=== PATIENT | female | born 1935 | race Asian ===

== ENCOUNTER 2017-07-11 07:12 | Inpatient (IN) | payer MEDICARE, OTHER ==
[~2017-07-11] VITALS: Ht 160 cm; Wt 43.2 kg
[2017-07-11] VITALS (17 sets, daily range): BP systolic 110–145; BP diastolic 50–75
--- NOTE | 2017-07-11 08:00 | Emergency Room Report ---
History of Present Illness General Chief Complaint: Altered Level of Consciousness Source: Medical Record, EMS Present Illness HPI 81-year-old female, coming from [facility], history of breast cancer, congestive heart failure, CVA, respiratory failure, baseline mental status is nonverbal but alert, presenting with altered mental status. EMS stating that nursing staff stated she was unresponsive this morning. Patient was hypoxic on room air, 100% with 3 L nasal cannula. No other history is able to be obtained Allergies: Coded Allergies: No Known Allergies (Unverified , 07/11/17) Patient History Past Medical History: see triage record Past Surgical History: unable to obtain Pertinent Family History: unable to obtain Last Menstrual Period: NA Now: No Reviewed Nursing Documentation: PMH: Agreed, PSxH: Agreed Nursing Documentation-PMH Hx Cardiac Problems: Yes - chronic systolic heart failure Review of Systems All Other Systems: limited - nonverbal Physical Exam Vital Signs Date Time Temp Pulse Resp B/P (MAP) Pulse Ox O2 Delivery O2 Flow Rate FiO2 07/11/17 06:59 90 16 129/73 92 Nasal Cannula 2.0 Sp02 EP Interpretation: abnormal General Appearance: moderate distress, lethargic, thin, other - not responsive , Chronically Ill Head: normocephalic, atraumatic Eyes: bilateral eye normal inspection, bilateral eye PERRL, bilateral eye EOMI ENT: normal ENT inspection, normal pharynx, normal voice, moist mucus membranes Neck: normal inspection, full range of motion, supple Respiratory: other - crackles b/l Cardiovascular #1: normal inspection, regular rate, rhythm, normal capillary refill Cardiovascular #2: 2+ radial (R), 2+ radial (L) Gastrointestinal: normal inspection, non tender, soft, non-distended, no guarding Musculoskeletal: normal inspection, back normal, normal range of motion, non- tender Neurologic: other - moves spont, moans, but not responsive Psychiatric: other - not resp Skin: normal inspection, normal color, no rash, warm/dry, well hydrated, normal turgor Procedures Critical Care Time Critical Care Time 40 minutes of CC time 81-year-old female with altered mental status CHF, pneumonia VS: Hypoxic PLAN: IV access, labs, lactate, troponin, Blood/Urine Cx, Abx, IVF Anticipate admission to Tele vs. CATHERINE CC time also includes review of labs, review of EMR, discussion with family and paperwork from SNF, d/w hospitalist CC could include dosing of pressors, additional Abx CC time does not include procedures Medical Decision Making Diagnostic Impression: Primary Impression: Respiratory failure with hypoxia Additional Impressions: Pneumonia CHF (congestive heart failure) ER Course 81-year-old female, with altered mental status Baseline is nonverbal DDX: Dehydration, hypovolemia, electrolyte disturbance Sepsis 2/2 UTI, PNA, bacteremia, will also consider intra-abdominal pathology such as colitis / diverticulitis / acalculous cholecystitis if no other course found but at this time abdomen soft, NT, ND. CVA/intracranial bleed Plan: O2 via nasal cannula Obtain labs including cbc, bmp, blood culture, blood gas, lactate, ua, ucx CXR EKG ER course: Pt's airway remains patent, supplemental O2 provided by NC 30cc/kg bolus not given to patient as patient with congestive heart failure Patient's BP has remained stable with MAP > 65 Given broad spectrum abx - vancomycin and zosyn for possible HCAP placed on BIPAP - improvement of co2 I spoke to family with kinyarwanda employee operations examiner and informed them of her critical condition Disposition: Patient will admitted to ICU Patient requires close monitoring of respiratory/hemodynamic status and continuation of IV antibiotics. D/W Hospitalist Dr Rose Please note that this Emergency Department Report was dictated using [employer]' registry director technology software, occasionally this can lead to erroneous entry secondary to interpretation by the dictation equipment. EKG Diagnostic Results EP Interpretation: Yes Rate: normal Rhythm: NSR ST Segments: No acute changes ASA given to patient: No Rhythm Strip EP Interpretation: Yes Rate: 88 Rhythm: NSR, no PVCs, no ectopy Chest X-ray CXR: Ordered: Yes 1 view Indication: Altered mental status EP interpretation: Yes Interpretation: Cardiomegaly with bilateral pulmonary vascular congestion, likely with right-sided lower lobe pneumonia Impression: chf with L PNA Electronically signed by Anu Subramanian MD Laboratory Tests Test 07/11/17 08:00 07/11/17 08:04 07/11/17 09:10 07/11/17 09:26 Urine Color Pale yellow Urine Appearance Clear Urine pH 7 (4.5-8.0) Urine Specific [place] 1.010 (1.005-1.035) Urine Protein 1+ (NEGATIVE) H Urine Glucose (UA) Negative (NEGATIVE) Urine Ketones Negative (NEGATIVE) Urine Occult Blood Negative (NEGATIVE) Urine Nitrite Negative (NEGATIVE) Urine Bilirubin Negative (NEGATIVE) Urine Urobilinogen Normal MG/DL (0.0-1.0) Urine Leukocyte Esterase 1+ (NEGATIVE) H Urine RBC 2-4 /HPF (0 - 2) H Urine WBC 5-10 /HPF (0 - 2) H Urine Squamous Epithelial Cells Occasional /LPF Urine Bacteria Few /HPF (NONE) Sodium Level 142 MMOL/L (136-145) Potassium Level 4.6 MMOL/L (3.5-5.1) Chloride Level 103 MMOL/L (98-107) Carbon Dioxide Level 36 MMOL/L (21-32) H Anion Gap 4 mmol/L (5-15) L Blood Urea Nitrogen 18 mg/dL (7-18) Creatinine 1.0 MG/DL (0.55-1.30) Estimate Glomerular Filtration Rate mL/min (>60) Glucose Level 85 MG/DL (74-106) Lactic Acid Level 0.50 mmol/L (0.66-2.22) L Calcium Level 8.7 MG/DL (8.5-10.1) Total Bilirubin 0.3 MG/DL (0.2-1.0) Aspartate Amino Transferase (AST) 28 U/L (15-37) Alanine Aminotransferase (ALT) 13 U/L (12-78) Alkaline Phosphatase 66 U/L (46-116) Troponin I 0.026 ng/mL (0.000-0.056) Pro-B-Type Natriuretic Peptide 4801 pg/mL (0-125) H Total Protein 7.5 G/DL (6.4-8.2) Albumin 3.0 G/DL (3.4-5.0) L Globulin 4.5 g/dL Albumin/Globulin Ratio 0.7 (1.0-2.7) L Arterial Blood pH 7.291 (7.350-7.450) 7.324 (7.350-7.450) Arterial Blood Partial Pressure CO2 78.0 mmHg (35.0-45.0) *H 65.4 mmHg (35.0-45.0) *H Arterial Blood Partial Pressure O2 63.4 mmHg (75.0-100.0) L 74.9 mmHg (75.0-100.0) L Arterial Blood HCO3 36.7 mmol/L (22.0-26.0) H 33.2 mmol/L (22.0-26.0) H Arterial Blood Oxygen Saturation 88.1 % (92.0-98.0) L 93.0 % (92.0-98.0) Arterial Blood Base Excess 8.1 5.8 Arun Test Positive Positive White Blood Count 11.3 K/UL (4.8-10.8) H Red Blood Count 3.40 M/UL (4.20-5.40) L Hemoglobin 10.2 G/DL (12.0-16.0) L Hematocrit 33.1 % (37.0-47.0) L Mean Corpuscular Volume 97 FL (80-99) Mean Corpuscular Hemoglobin 29.9 PG (27.0-31.0) Mean Corpuscular Hemoglobin Concent 30.7 G/DL (32.0-36.0) L Red Cell Distribution Width 15.4 % (11.6-14.8) H Platelet Count 201 K/UL (150-450) Mean Platelet Volume 5.1 FL (6.5-10.1) L Neutrophils (%) (Auto) % (45.0-75.0) Lymphocytes (%) (Auto) % (20.0-45.0) Monocytes (%) (Auto) % (1.0-10.0) Eosinophils (%) (Auto) % (0.0-3.0) Basophils (%) (Auto) % (0.0-2.0) Neutrophils % (Manual) Pending Lymphocytes % (Manual) Pending Platelet Estimate Pending Platelet Morphology Pending Microbiology Date/Time Source Procedure Growth Status 07/11/17 08:00 Nasal Nares Influenza Types A,B Antigen (ERIBERTO) - Final Complete Last Vital Signs Date Time Temp Pulse Resp B/P (MAP) Pulse Ox O2 Delivery O2 Flow Rate FiO2 07/11/17 06:59 90 16 129/73 92 Nasal Cannula 2.0 Disposition: ADMITTED INPATIENT Condition: Anu Mims M.D. Jul 11, 2017 08:00
[2017-07-11 08:17] LABS: APPEARANCE,URINE CLEAR; BILIRUBIN, URINE NEGATIVE (NEGATIVE); COLOR,URINE PALE YELLOW; GLUCOSE, URINE (UA) NEGATIVE (NEGATIVE); KETONES,URINE NEGATIVE (NEGATIVE); LEUKOCYTE ESTERASE ,URINE 1+ (NEGATIVE); NITRITE,URINE NEGATIVE (NEGATIVE); PH,URINE 7 (4.5-8.0); PROTEIN,URINE 1+ (NEGATIVE); UROBILINOGEN,URINE NORMAL MG/DL (0.0-1.0)
[2017-07-11 08:30] LABS: ANION GAP 4 mmol/L (5-15); BLOOD UREA NITROGEN 18 mg/dL (7-18); CALCIUM 8.7 MG/DL (8.5-10.1); CARBON DIOXIDE 36 MMOL/L (21-32); CHLORIDE 103 MMOL/L (98-107); POTASSIUM 4.6 MMOL/L (3.5-5.1); SODIUM 142 MMOL/L (136-145)
[2017-07-11] MEDS ORDERED: Piperacillin/Tazobactam 3.375 GM in NS 55 ML IV ONE (08:45)
[2017-07-11] MEDS ORDERED: Vancomycin 1 GM in NS 275 ML IVPB ONE (08:45)
[2017-07-11 08:47] LABS: ALANINE AMINOTRANSFERASE 13 U/L (12-78); ALBUMIN/GLOBULIN RATIO 0.7 (1.0-2.7); ALKALINE PHOSPHATASE 66 U/L (46-116); ASPARTATE AMINO TRANSFERASE 28 U/L (15-37); BILIRUBIN,TOTAL 0.3 MG/DL (0.2-1.0)
[2017-07-11] MEDS ORDERED: Zosyn 3.375gm inj ONE (08:50)
[2017-07-11 09:27] LABS: HEMATOCRIT 33.1 % (37.0-47.0); HEMOGLOBIN 10.2 G/DL (12.0-16.0); MEAN CORPUSCULAR VOLUME 97 FL (80-99); PLATELET COUNT 201 K/UL (150-450); RED CELL DISTRIBUTION WIDTH 15.4 % (11.6-14.8); WHITE BLOOD COUNT 11.3 K/UL (4.8-10.8)
[2017-07-11] MEDS ORDERED: Vancomycin 1gm inj IVPB ONE (09:35)
[2017-07-11] MEDS ORDERED: ATORVASTATIN CA40 MG ORAL (10:35)
[2017-07-11] MEDS ORDERED: DULCOLAX10 MG RC (10:35)
[2017-07-11] MEDS ORDERED: MULTIVITAMINS1 EAC8 ORAL (10:35)
[2017-07-11] MEDS ORDERED: ACETAMINOPHEN325 M1 ORAL (10:35)
[2017-07-11] MEDS ORDERED: PROAIR HFA8.5 GM INH (10:35)
[2017-07-11] MEDS ORDERED: COREG3.125 MG ORAL (10:35)
[2017-07-11] MEDS ORDERED: MILK OF MA400 MG/51 ORAL (10:35)
[2017-07-11] MEDS ORDERED: COLACE100 MG ORAL (10:35)
[2017-07-11] MEDS ORDERED: ASPIR 8181 MG ORAL (10:35)
[2017-07-11] MEDS ORDERED: VITAMIN C500 M1 ORAL (10:35)
[2017-07-11] MEDS ORDERED: LORazepam Inj 2mg/ml 1ml IV PRN (11:00)
[2017-07-11] MEDS ORDERED: Morphine Sulfate 4mg/ml Inj IVP PRN (11:00)
[2017-07-11] MEDS ORDERED: Miralax 17gm pkt ORAL PRN (11:00)
[2017-07-11] MEDS ORDERED: Albuterol/Ipratropium 3ml neb HHN PRN (11:00)
--- NOTE | 2017-07-11 12:24 | Diagnostic Imaging Report ---
Indication: Dyspnea Comparison: None A single view chest radiograph was obtained. Findings: Interstitial edema and prominent pulmonary vascularity and heart size are demonstrated. Basilar densities likely atelectasis noted. Bones are moderately osteopenic. IMPRESSION: CHF/interstitial edema suspected
[2017-07-11] MEDS ORDERED: AMIKACIN IV SCH (16:30)
[2017-07-11] MEDS ORDERED: D5W IV SCH (16:30)
--- NOTE | 2017-07-11 17:26 | Cardiology Report ---
APPROVED REPORT EXAM: Two-dimensional and M-mode echocardiogram with Doppler and color Doppler. INDICATION Left ventricular function M-Mode DIMENSIONS IVSd1.5 (0.7-1.1cm)Left Atrium (MM)1.9 (1.6-4.0cm) LVDd4.6 (3.5-5.6cm)Aortic Root3.4 (2.0-3.7cm) PWd1.5 (0.7-1.1cm)Aortic Cusp Exc.1.5 (1.5-2.0cm) LVDs2.8 (2.5-4.0cm) PWs1.9 cm Normal left ventricular chamber size, systolic function and wall motion.however chirag distal posteriro wall is not adequately visualized Left ventricular ejection fraction estimated to be 55-60%. Moderate left ventricular hypertrophy. Small posterior pericardial effusion. Right cardiac chamber sizes are within normal limits. Mild left atrial enlargement by 2D. Focal aortic valve sclerosis with adequate cusp excursion. Normal mitral valve leaflets with normal excursion. Normal mitral annulus and aortic root. Pulmonic valve is well visualized. Normal tricuspid valve structure. IVC dilated at 2.4 cm non-collapsible with respiration indicate increased RA pressure. A color flow and spectral Doppler study was performed and revealed: Moderate aortic regurgitation. Trace mitral regurgitation. Mitral diastolic velocities suggest reduced left ventricular relaxation c/w diastolic dysfunction grade 1. Mild tricuspid regurgitation. Tricuspid systolic velocities suggests peak right ventricular systolic pressure of 50mmHg Consistent with moderate pulmonary hypertension. Pulmonic regurgitation present.
--- NOTE | 2017-07-11 17:29 | History and Physical ---
History of Present Illness General Date patient seen: Jul 11, 2017 Reason for Hospitalization: Altered Level of Consciousness Present Illness HPI 81[facility], history of breast cancer, congestive heart failure, CVA, respiratory failure, baseline mental status is nonverbal but alert, presenting with altered mental status. Apparently, she was unresponsive. Patient was hypoxic on room air, 100% with 3 L nasal cannula. Her CXr showed RLL infiltrate. Allergies: Coded Allergies: No Known Allergies (Unverified , 07/11/17) Medication History Scheduled Albuterol Sulfate* (Proair Hfa*), 1 PUFF INH Q4HR, (Reported) Ascorbic Acid* (Vitamin C*), 500 MG ORAL TWICE A DAY, (Reported) Aspirin* (Aspir 81*), 81 MG ORAL DAILY, (Reported) Atorvastatin Calcium* (Atorvastatin Calcium*), 40 MG ORAL BEDTIME, (Reported) Carvedilol (Coreg), 3.125 MG ORAL EVERY 12 HOURS, (Reported) Docusate Sodium* (Colace*), 100 MG ORAL TWICE A DAY, (Reported) Multivitamin With Minerals (Multivitamins With Minerals*), 1 TAB ORAL DAILY, ( Reported) Scheduled PRN Acetaminophen* (Acetaminophen 325MG Tablet*), 650 MG ORAL Q8HR PRN for For Pain Level <=5, (Reported) Acetaminophen* (Acetaminophen 325MG Tablet*), 650 MG ORAL Q8HR PRN for Fever/ Headache/Mild Pain, (Reported) Bisacodyl (Dulcolax), 10 MG RC for Constipation, (Reported) Magnesium Hydroxide* (Milk Of Magnesia*), 30 ML ORAL NEEDED PRN for Constipation, (Reported) Patient History Healthcare decision maker Zayda Doherty/daughter Resuscitation status Full Code Advanced Directive on File No Past Medical/Surgical History Past Medical/Surgical History: (1) CHF (congestive heart failure) Social History Social History: (1) Dementia (2) History of CVA (cerebrovascular accident) (3) CAD (coronary artery disease) Review of Systems Constitutional: Reports: malaise, weakness ENT: Reports: no symptoms Cardiovascular: Reports: no symptoms Gastrointestinal: Reports: no symptoms Genitourinary: Reports: no symptoms Physical Exam General Appearance: WD/WN, no apparent distress Lines, tubes and drains: peripheral HEENT: normocephalic, atraumatic Neck: non-tender, normal alignment Respiratory/Chest: chest wall non-tender, lungs clear Breasts: no masses Cardiovascular/Chest: normal peripheral pulses, normal rate Abdomen: normal bowel sounds Genitourinary/Rectal: normal genital exam Extremities: normal range of motion Last 24 Hour Vital Signs Date Time Temp Pulse Resp B/P (MAP) Pulse Ox O2 Delivery O2 Flow Rate FiO2 07/11/17 17:00 83 19 132/64 98 Nasal Cannula 2.0 07/11/17 16:00 98.0 80 20 138/73 100 Nasal Cannula 2.0 07/11/17 16:00 80 07/11/17 15:00 81 21 134/61 98 Nasal Cannula 2.0 07/11/17 14:00 97.8 80 21 135/59 100 Nasal Cannula 2.0 07/11/17 13:07 97 Nasal Cannula 4.0 36 07/11/17 13:07 Nasal Cannula 4.0 36 07/11/17 12:39 94 17 155/66 100 Nasal Cannula 4.0 07/11/17 11:49 81 20 145/72 98 Bi-pap 30 07/11/17 10:40 79 17 130/61 97 Bi-pap 30 07/11/17 10:00 100.3 86 17 135/61 97 Bi-pap 30 07/11/17 09:52 82 17 98 Facial 30 07/11/17 09:30 81 16 118/57 97 Bi-pap 30 07/11/17 09:00 87 18 136/50 97 Bi-pap 30 07/11/17 08:51 91 20 Bi-pap 30 07/11/17 08:48 91 19 99 Facial 30 07/11/17 08:37 30 07/11/17 08:30 90 15 144/70 97 Nasal Cannula 2.0 07/11/17 08:00 91 24 139/68 100 Nasal Cannula 2.0 07/11/17 07:15 100.1 87 16 138/66 100 Nasal Cannula 4.0 07/11/17 06:59 90 16 129/73 92 Nasal Cannula 2.0 Laboratory Tests Test 07/11/17 08:00 07/11/17 08:04 07/11/17 09:10 07/11/17 09:26 Urine Color Pale yellow Urine Appearance Clear Urine pH 7 (4.5-8.0) Urine Specific [place] 1.010 (1.005-1.035) Urine Protein 1+ (NEGATIVE) H Urine Glucose (UA) Negative (NEGATIVE) Urine Ketones Negative (NEGATIVE) Urine Occult Blood Negative (NEGATIVE) Urine Nitrite Negative (NEGATIVE) Urine Bilirubin Negative (NEGATIVE) Urine Urobilinogen Normal MG/DL (0.0-1.0) Urine Leukocyte Esterase 1+ (NEGATIVE) H Urine RBC 2-4 /HPF (0 - 2) H Urine WBC 5-10 /HPF (0 - 2) H Urine Squamous Epithelial Cells Occasional /LPF Urine Bacteria Few /HPF (NONE) Sodium Level 142 MMOL/L (136-145) Potassium Level 4.6 MMOL/L (3.5-5.1) Chloride Level 103 MMOL/L (98-107) Carbon Dioxide Level 36 MMOL/L (21-32) H Anion Gap 4 mmol/L (5-15) L Blood Urea Nitrogen 18 mg/dL (7-18) Creatinine 1.0 MG/DL (0.55-1.30) Estimat Glomerular Filtration Rate mL/min (>60) Glucose Level 85 MG/DL (74-106) Lactic Acid Level 0.50 mmol/L (0.66-2.22) L Calcium Level 8.7 MG/DL (8.5-10.1) Total Bilirubin 0.3 MG/DL (0.2-1.0) Aspartate Amino Transf (AST/SGOT) 28 U/L (15-37) Alanine Aminotransferase (ALT/SGPT) 13 U/L (12-78) Alkaline Phosphatase 66 U/L (46-116) Troponin I 0.026 ng/mL (0.000-0.056) Pro-B-Type Natriuretic Peptide 4801 pg/mL (0-125) H Total Protein 7.5 G/DL (6.4-8.2) Albumin 3.0 G/DL (3.4-5.0) L Globulin 4.5 g/dL Albumin/Globulin Ratio 0.7 (1.0-2.7) L Arterial Blood pH 7.291 (7.350-7.450) 7.324 (7.350-7.450) Arterial Blood Partial Pressure CO2 78.0 mmHg (35.0-45.0) *H 65.4 mmHg (35.0-45.0) *H Arterial Blood Partial Pressure O2 63.4 mmHg (75.0-100.0) L 74.9 mmHg (75.0-100.0) L Arterial Blood HCO3 36.7 mmol/L (22.0-26.0) H 33.2 mmol/L (22.0-26.0) H Arterial Blood Oxygen Saturation 88.1 % (92.0-98.0) L 93.0 % (92.0-98.0) Arterial Blood Base Excess 8.1 5.8 Arun Test Positive Positive White Blood Count 11.3 K/UL (4.8-10.8) H Red Blood Count 3.40 M/UL (4.20-5.40) L Hemoglobin 10.2 G/DL (12.0-16.0) L Hematocrit 33.1 % (37.0-47.0) L Mean Corpuscular Volume 97 FL (80-99) Mean Corpuscular Hemoglobin 29.9 PG (27.0-31.0) Mean Corpuscular Hemoglobin Concent 30.7 G/DL (32.0-36.0) L Red Cell Distribution Width 15.4 % (11.6-14.8) H Platelet Count 201 K/UL (150-450) Mean Platelet Volume 5.1 FL (6.5-10.1) L Neutrophils (%) (Auto) % (45.0-75.0) Lymphocytes (%) (Auto) % (20.0-45.0) Monocytes (%) (Auto) % (1.0-10.0) Eosinophils (%) (Auto) % (0.0-3.0) Basophils (%) (Auto) % (0.0-2.0) Differential Total Cells Counted 100 Neutrophils % (Manual) 37 % (45-75) L Lymphocytes % (Manual) 56 % (20-45) H Monocytes % (Manual) 6 % (1-10) Eosinophils % (Manual) 1 % (0-3) Basophils % (Manual) 0 % (0-2) Band Neutrophils 0 % (0-8) Platelet Estimate Adequate Platelet Morphology Normal Hypochromasia 2+ Anisocytosis 1+ Microbiology Date/Time Source Procedure Growth Status 07/11/17 08:00 Nasal Nares Influenza Types A,B Antigen (ERIBERTO) - Final Complete Height (Feet): 5 Height (Inches): 3.00 Weight (Pounds): 95 Medications Current Medications Medications (Trade) Dose Ordered Sig/Sam Route PRN Reason Start Time Stop Time Status Last Admin Dose Admin Acetaminophen (Tylenol) 650 mg Q4H PRN ORAL fever 07/11/17 11:00 08/10/17 10:59 Albuterol/ Ipratropium (Albuterol/ Ipratropium) 3 ml EVERY 4 HOURS PRN HHN Shortness of Breath 07/11/17 11:00 07/16/17 10:59 Amikacin Sulfate 250 mg/Dextrose 56 ml @ 110 mls/hr Q12H IV 07/12/17 04:00 07/19/17 03:59 Amikacin Sulfate 350 mg/Dextrose 56.4 ml @ 110 mls/hr ONCE IV 07/11/17 16:30 07/18/17 16:29 07/11/17 16:24 Ertapenem 1 gm/ Sodium Chloride 55 ml @ 110 mls/hr Q24H IV 07/11/17 18:00 07/11/17 18:29 Heparin Sodium (Porcine) (Heparin 5000 units/ml) 5,000 units EVERY 12 HOURS SUBQ 07/11/17 21:00 08/10/17 20:59 Lorazepam (Ativan 2mg/ml 1ml) 2 mg EVERY 2 HOURS PRN IV For Anxiety 07/11/17 11:00 07/18/17 10:59 Morphine Sulfate (Morphine Sulfate) 4 mg EVERY 4 HOURS PRN IVP Severe Pain (Pain Scale 7-10) 07/11/17 11:00 07/18/17 10:59 Norepinephrine Bitartrate 4 mg/ Dextrose 254 ml @ 0 mls/hr Q24H IV 07/11/17 14:45 08/10/17 14:44 Ondansetron HCl (Zofran) 4 mg Q6H PRN IVP Nausea & Vomiting 07/11/17 11:00 08/10/17 10:59 Pantoprazole (Protonix) 40 mg DAILY IV 07/12/17 09:00 08/11/17 08:59 Polyethylene Glycol (Miralax) 17 gm DAILYPRN PRN ORAL Constipation 07/11/17 11:00 08/10/17 10:59 Sodium Chloride 1,000 ml @ 100 mls/hr Q10H IVLG 07/11/17 15:30 08/10/17 15:29 07/11/17 15:38 Vancomycin/Sodium Chloride 250 ml @ 166.667 mls/hr Q24H IVPB 07/12/17 08:00 07/17/17 07:59 Assessment/Plan Problem List: (1) Respiratory failure with hypoxia ICD Codes: J96.91 - Respiratory failure, unspecified with hypoxia SNOMED: 68461850473248255 (2) Altered level of consciousness ICD Codes: R40.4 - Transient alteration of awareness SNOMED: 0043213 (3) Dementia ICD Codes: F03.90 - Unspecified dementia without behavioral disturbance SNOMED: 86926754 (4) History of CVA (cerebrovascular accident) ICD Codes: Z86.73 - Personal history of transient ischemic attack (TIA), and cerebral infarction without residual deficits SNOMED: 592916131 (5) CAD (coronary artery disease) ICD Codes: I25.10 - Atherosclerotic heart disease of [place] coronary artery without angina pectoris SNOMED: 43532709 (6) Pneumonia ICD Codes: J18.9 - Pneumonia, unspecified organism SNOMED: 025061804 Assessment/Plan respiratory treatment IV abx chest pt Neuro evaluation pt/tp titrate fio2 to sat of 92% JADE CHÁVEZ Jul 11, 2017 17:29
[2017-07-11] MEDS ORDERED: Ertapenem 1 GM in NS 55 ML IV SCH (18:00)
[2017-07-11] MEDS ORDERED: Heparin 5000 units/ml inj SUBQ SCH (21:00)
[2017-07-11] MEDS ORDERED: Amikacin 0 MG in NS 110 ML IV SCH (23:45)
[2017-07-11] MEDS ORDERED: Vancomycin 1 GM in D5W 275 ML IV SCH (23:45)
[2017-07-12] VITALS: BP 149/71
[2017-07-12] MEDS ORDERED: Albuterol/Ipratropium 3ml neb HHN PRN (01:00)
[2017-07-12] MEDS ORDERED: Morphine Sulfate 4mg/ml Inj IVP PRN (01:00)
[2017-07-12 04:00] VITALS: BP 153/80
[2017-07-12] MEDS ORDERED: D5W IV SCH ×4 (04:00)
[2017-07-12] MEDS ORDERED: AMIKACIN IV SCH ×4 (04:00)
[2017-07-12 05:39] LABS: BASOPHILS % (AUTO) 0.6 % (0.0-2.0); EOSINOPHILS % (AUTO) 0.8 % (0.0-3.0); HEMATOCRIT 32.3 % (37.0-47.0); HEMOGLOBIN 9.9 G/DL (12.0-16.0); LYMPHOCYTES % (AUTO) 45.2 % (20.0-45.0); MEAN CORPUSCULAR VOLUME 100 FL (80-99); MONOCYTES % (AUTO) 13.3 % (1.0-10.0); NEUTROPHILS % (AUTO) 40.1 % (45.0-75.0); PLATELET COUNT 263 K/UL (150-450); RED BLOOD COUNT 3.25 M/UL (4.20-5.40); RED CELL DISTRIBUTION WIDTH 15.6 % (11.6-14.8); WHITE BLOOD COUNT 11.1 K/UL (4.8-10.8)
[2017-07-12 06:13] LABS: ALANINE AMINOTRANSFERASE 10 U/L (12-78); BILIRUBIN,DIRECT 0.1 MG/DL (0.0-0.3); BLOOD UREA NITROGEN 19 mg/dL (7-18)
[2017-07-12 07:24] LABS: ALBUMIN 2.8 G/DL (3.4-5.0); ALBUMIN/GLOBULIN RATIO 0.7 (1.0-2.7); ALKALINE PHOSPHATASE 66 U/L (46-116); ANION GAP 7 mmol/L (5-15); ASPARTATE AMINO TRANSFERASE 25 U/L (15-37); BILIRUBIN,TOTAL 0.3 MG/DL (0.2-1.0); CALCIUM 8.2 MG/DL (8.5-10.1); CARBON DIOXIDE 32 MMOL/L (21-32); CHLORIDE 103 MMOL/L (98-107); CREATININE 0.8 MG/DL (0.55-1.30); POTASSIUM 4.5 MMOL/L (3.5-5.1); SODIUM 142 MMOL/L (136-145)
[2017-07-12 08:00] VITALS: BP 160/80
[2017-07-12] MEDS ORDERED: Vancomycin 750mg/NS 250ml IVPB SCH (08:00)
[2017-07-12] MEDS: Vancomycin 750mg/NS 250ml 250 ML IVPB SCH (08:19)
[2017-07-12] MEDS: Pantoprazole Inj IV SCH (08:24)
[2017-07-12] MEDS: Heparin 5000 units/ml inj SUBQ SCH ×2 (08:27→20:22)
[2017-07-12] MEDS ORDERED: Pantoprazole Inj IV SCH (09:00)
--- NOTE | 2017-07-12 11:29 | Diagnostic Imaging Report ---
Indication: Dyspnea Comparison: 07/11/2017 A single view chest radiograph was obtained. Findings: There is no radiographic change. The heart is enlarged moderately. There is evidence of interstitial edema. There are probable small bilateral pleural effusions. 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
[2017-07-12 12:00] VITALS: BP 159/87
--- NOTE | 2017-07-12 13:06 | Pulmonology Progress Note ---
Assessment/Plan Problems: (1) Pneumonia (2) Respiratory failure with hypoxia (3) Altered level of consciousness (4) Dementia (5) History of CVA (cerebrovascular accident) (6) CAD (coronary artery disease) Respiratory: monitor respiratory rate, adjust FIO2, CXR Cardiac: continue to monitor HR/BP Renal: F/U I&O, keep IV fluid Infectious Disease: check cultures Gastrointestinal: continue feedings/current rate, other - swallow study Endocrine: monitor blood sugar, check TSH, continue sliding scale insulin Hematologic: monitor H/H, transfuse if hgb<8.5 Neurologic: PRN Ativan, keep patient comfortable Prophylaxis: Protonix, Heparin Time Spent (Minutes): 40 Notes Reviewed: plugging machine operator, cardio, renal Discussed with: nurses, consultants, field nurse case manager Subjective Interval Events: awake,confused Allergies: Coded Allergies: No Known Allergies (Unverified , 07/11/17) Objective Last 24 Hour Vital Signs Date Time Temp Pulse Resp B/P (MAP) Pulse Ox O2 Delivery O2 Flow Rate FiO2 07/12/17 08:00 105 07/12/17 08:00 97.0 103 18 160/80 97 Nasal Cannula 2.0 07/12/17 07:26 Nasal Cannula 2.0 28 07/12/17 07:25 100 Nasal Cannula 2.0 28 07/12/17 07:25 99 20 Nasal Cannula 2.0 07/12/17 04:00 97.7 98 20 153/80 100 Nasal Cannula 2.0 07/12/17 04:00 89 07/12/17 00:00 98.0 92 20 149/71 99 Nasal Cannula 2.0 07/11/17 23:09 87 07/11/17 22:00 85 20 116/60 97 Nasal Cannula 2.0 07/11/17 21:56 87 20 Nasal Cannula 2.0 07/11/17 21:55 Nasal Cannula 2.0 28 07/11/17 21:55 94 Nasal Cannula 2.0 28 07/11/17 21:00 98.3 84 20 110/52 97 Nasal Cannula 2.0 07/11/17 20:00 98.3 84 23 115/55 97 Nasal Cannula 2.0 07/11/17 20:00 84 07/11/17 19:00 81 24 135/75 98 Nasal Cannula 2.0 07/11/17 18:00 91 25 140/62 98 Nasal Cannula 2.0 07/11/17 17:00 83 19 132/64 98 Nasal Cannula 2.0 07/11/17 16:00 98.0 80 20 138/73 100 Nasal Cannula 2.0 07/11/17 16:00 80 07/11/17 15:00 81 21 134/61 98 Nasal Cannula 2.0 07/11/17 14:00 97.8 80 21 135/59 100 Nasal Cannula 2.0 07/11/17 13:07 97 Nasal Cannula 4.0 36 07/11/17 13:07 Nasal Cannula 4.0 36 Intake and Output 07/11/17 07/12/17 19:00 07:00 Intake Total 686.4 ml 555 ml Output Total 120 ml 2 ml Balance 566.4 ml 553 ml Intake IV Total 686.4 ml 555 ml Output Urine Total 120 ml 2 ml General Appearance: cachetic HEENT: normocephalic, atraumatic Respiratory/Chest: chest wall non-tender, lungs clear Cardiovascular: normal peripheral pulses, normal rate, regular rhythm Abdomen: normal bowel sounds, soft, non tender Genitourinary: normal external genitalia Extremities: no clubbing Skin: no rash Neurologic/Psychiatric: integration director II-XII grossly normal Lymphatic: no neck adenopathy Microbiology Date/Time Source Procedure Growth Status 07/11/17 08:00 Nasal Nares Influenza Types A,B Antigen (ERIBERTO) - Final Complete Laboratory Tests 07/12/17 03:20: White Blood Count 11.1H, Red Blood Count 3.25L, Hemoglobin 9.9L, Hematocrit 32.3L, Mean Corpuscular Volume 100H, Mean Corpuscular Hemoglobin 30.5, Mean Corpuscular Hemoglobin Concent 30.6L, Red Cell Distribution Width 15.6H, Platelet Count 263, Mean Platelet Volume 5.5L, Neutrophils (%) (Auto) 40.1L, Lymphocytes (%) (Auto) 45.2H, Monocytes (%) (Auto) 13.3H, Eosinophils (%) (Auto ) 0.8, Basophils (%) (Auto) 0.6, Sodium Level 142, Potassium Level 4.5, Chloride Level 103, Carbon Dioxide Level 32, Anion Gap 7, Blood Urea Nitrogen 19H, Creatinine 0.8, Estimat Glomerular Filtration Rate , Glucose Level 87, Calcium Level 8.2L, Total Bilirubin 0.3, Direct Bilirubin 0.1, Aspartate Amino Transf (AST/SGOT) 25, Alanine Aminotransferase (ALT/SGPT) 10L, Alkaline Phosphatase 66, Total Protein 7.1, Albumin 2.8L, Globulin 4.3, Albumin/Globulin Ratio 0.7L 07/12/17 10:45: Arterial Blood pH 7.219*L, Arterial Blood Partial Pressure CO2 83.3*H, Arterial Blood Partial Pressure O2 131.2H, Arterial Blood HCO3 33.2H, Arterial Blood Oxygen Saturation 97.9, Arterial Blood Base Excess 3.5, Arun Test Positive Current Medications Medications (Trade) Dose Ordered Sig/Sam Route PRN Reason Start Time Stop Time Status Last Admin Dose Admin Acetaminophen (Tylenol) 650 mg Q4H PRN ORAL fever 07/12/17 00:46 08/10/17 00:45 Albuterol/ Ipratropium (Albuterol/ Ipratropium) 3 ml Q4H PRN HHN Shortness of Breath 07/12/17 01:00 07/17/17 00:59 Amikacin Sulfate 250 mg/Dextrose 56 ml @ 110 mls/hr Q12H IV 07/12/17 04:00 07/19/17 03:59 07/12/17 04:20 Heparin Sodium (Porcine) (Heparin 5000 units/ml) 5,000 units EVERY 12 HOURS SUBQ 07/12/17 09:00 08/10/17 20:59 07/12/17 08:27 Lorazepam (Ativan 2mg/ml 1ml) 2 mg Q2H PRN IV For Anxiety 07/12/17 00:00 07/19/17 00:00 07/12/17 11:26 Morphine Sulfate (Morphine Sulfate) 4 mg Q4H PRN IVP Severe Pain (Pain Scale 7-10) 07/12/17 01:00 07/19/17 00:59 Ondansetron HCl (Zofran) 4 mg Q6H PRN IVP Nausea & Vomiting 07/12/17 00:49 08/10/17 00:48 Pantoprazole (Protonix) 40 mg DAILY IV 07/12/17 09:00 08/11/17 08:59 07/12/17 08:24 Polyethylene Glycol (Miralax) 17 gm DAILYPRN PRN ORAL Constipation 07/12/17 00:49 08/10/17 00:48 Sodium Chloride 1,000 ml @ 100 mls/hr Q10H IVLG 07/12/17 01:00 08/11/17 00:59 07/12/17 11:26 Vancomycin/Sodium Chloride 250 ml @ 166.667 mls/hr Q24H IVPB 07/12/17 08:00 07/17/17 07:59 07/12/17 08:19 JADE CHÁVEZ Jul 12, 2017 13:06
--- NOTE | 2017-07-12 13:24 | Consultation ---
Consult Note Consult Note ID DIC # [id number] LILIANA SMITH M.D. Jul 12, 2017 13:24
[2017-07-12] MEDS: Cefepime HCl 2 GM in D5W 55 ML IVPB SCH (15:26)
--- NOTE | 2017-07-12 15:55 | Cardiology Report ---
APPROVED REPORT EKG Measurement Heart [id number] Normal sinus rhythm Possible Left atrial enlargement Left axis deviation Abnormal ECG
[2017-07-12 16:00] VITALS: BP 155/77
[2017-07-12] MEDS ORDERED: LORazepam Inj 2mg/ml 1ml IV PRN ×2 (16:00)
--- NOTE | 2017-07-12 16:58 | Wound Care Consultation ---
Wound Assessment Wound Assessment #1: Wound Number: 1 Wound Present on Admission: Yes New Wound: No Status Change of Wound: No Wound Location Body Site Modif: mid Wound Location Body Site: sacral - extending to left buttock Wound Type: pressure ulcer Janet Test: Does not Janet Pressure Ulcer Stage: Unstageable Wound Thickness: Full Thickness Wound Length: 8.0 Wound Width: 4.5 Wound Depth: utd Percent of Wound Naselle/Red: 40 Percent of Wound Bed Yellow/Wh: 60 Wound Drainage Description: Serosanguineous Wound Drainage Amount: Moderate Wound Drainage Odor: None/Absent Tissue Surrounding Wound: Erythemic Wound General Appearance: Reddened - yellow, Draining Wound Assessment #2: Wound Number: 2 Wound Present on Admission: Yes New Wound: No Status Change of Wound: No Wound Location Body Site Modif: left Wound Location Body Site: ischial tuberosity Wound Type: pressure ulcer Janet Test: Does not Janet Pressure Ulcer Stage: Unstageable Wound Thickness: Full Thickness Wound Length: 4.5 Wound Width: 7.5 Wound Depth: utd Percent of Wound Naselle/Red: 20 Percent of Wound Bed Yellow/Wh: 80 Wound Drainage Description: Serosanguineous Wound Drainage Amount: Moderate Wound Drainage Odor: None/Absent Tissue Surrounding Wound: Macerated Wound General Appearance: Reddened - yellow, Draining Wound Assessment #3: Wound Number: 3 Wound Present on Admission: Yes New Wound: No Status Change of Wound: No Wound Location Body Site: perineal area Wound Type: erosion Janet Test: Does not Janet Wound Thickness: Full Thickness Percent of Wound Naselle/Red: 80 Percent of Wound Bed Yellow/Wh: 20 Wound Drainage Amount: None Wound Drainage Odor: None/Absent Tissue Surrounding Wound: Erythemic Wound General Appearance: Reddened Wound Comment #1 Mid sacral extending to left buttock unstageable pressure ulcer #2 Left ischial tuberosity unstageable pressure ulcer #3 Chemical burn with full thickness scar tissue Recommendation -Local wound care per protocol -Keep clean and dry -Optimize nutrition -Low air loss mattress -Turn and reposition -Offload both heels -Heel protector on both heels -Assess and f/u accordingly for any changes BLANE DING RN Jul 12, 2017 16:57
[2017-07-12 20:00] VITALS: BP 140/72
[2017-07-13] VITALS: BP 130/58
[2017-07-13 04:00] VITALS: BP 138/67
--- NOTE | 2017-07-13 07:45 | Consultation ---
DATE OF CONSULTATION: 07/12/2017 INFECTIOUS DISEASE CONSULTATION CONSULTING PHYSICIAN: Roscoe Velasquez M.D. ATTENDING/REFERRING PHYSICIAN: Jean Rose M.D. REASON FOR CONSULTATION: Evaluation of the patient for possible sepsis, pneumonia, antibiotic management. HISTORY OF PRESENT ILLNESS: The patient is an 81-year-old female, who is resident of group home with multiple medical problems as listed below, who was admitted to this medical center due to shortness of breath, cough, letharginess. Chest x-ray showed right lower lobe infiltrate. The patient has been given IV antibiotics. Infectious disease consultation has been requested for further evaluation of the patient's antibiotic management. PAST MEDICAL HISTORY: Significant for: 1. Breast cancer. 2. CHF. 3. CVA. 4. Asthma. MEDICATIONS: Vancomycin and amikacin. ALLERGIES: No known drug allergies. SOCIAL HISTORY: The patient smoke. FAMILY HISTORY: Unavailable. REVIEW OF SYSTEMS: Unobtainable. PHYSICAL EXAMINATION: VITAL SIGNS: Temperature 98, T-max 100.3, pulse 102, blood pressure 159/87, and respiratory rate 18. HEENT: Mild pale conjunctivae. No icterus. NECK: Supple. CHEST: Coarse breathing sounds. HEART: S1, S2. ABDOMEN: Soft, nontender. EXTREMITIES: No cyanosis. NEUROLOGIC: and lethargic. LABORATORY AND DIAGNOSTIC DATA: WBC 11.1, hemoglobin 9.9, and platelets 263,000. UA . BUN 19 and creatinine 0.8. ALT, AST, and alkaline phosphatase unremarkable. Rapid influenza A and B negative. Chest x-ray, interstitial edema. Echo, there was evidence of pulmonary hypertension. ASSESSMENT: 1. The patient is an 81-year-old female with possible healthcare-associated pneumonia. 2. Status post low-grade fever. 3. Mild leukocytosis. 4. Influenza A and B negative. PLAN: 1. We will continue the patient on vancomycin and cefepime. 2. Monitor CBC. 3. Monitor BMP. 4. Monitor cultures (blood, sputum). 5. Monitor chest x-ray. 6. Check CRP. 7. Based on the patient's clinical course and labs, we will do further recommendation. Thank you, Dr. Rose, for allowing me to participate in the care of this patient. I will follow the patient with you during this hospitalization. Roscoe Velasquez M.D. DR: COURTNEY JOB#: [id number] CC:
[2017-07-13 08:00] VITALS: BP 140/68
[2017-07-13 08:01] LABS: BASOPHILS % (AUTO) 0.6 % (0.0-2.0); EOSINOPHILS % (AUTO) 0.1 % (0.0-3.0); HEMATOCRIT 32.3 % (37.0-47.0); HEMOGLOBIN 9.9 G/DL (12.0-16.0); LYMPHOCYTES % (AUTO) 44.3 % (20.0-45.0); MEAN CORPUSCULAR VOLUME 101 FL (80-99); MONOCYTES % (AUTO) 13.5 % (1.0-10.0); NEUTROPHILS % (AUTO) 41.5 % (45.0-75.0); PLATELET COUNT 217 K/UL (150-450); RED BLOOD COUNT 3.21 M/UL (4.20-5.40); WHITE BLOOD COUNT 13.1 K/UL (4.8-10.8)
[2017-07-13] MEDS: Vancomycin 750mg/NS 250ml 250 ML IVPB SCH (08:28)
[2017-07-13 08:29] LABS: ALANINE AMINOTRANSFERASE < 6 U/L (12-78); ALBUMIN 2.5 G/DL (3.4-5.0); ALBUMIN/GLOBULIN RATIO 0.6 (1.0-2.7); ALKALINE PHOSPHATASE 61 U/L (46-116); ANION GAP 6 mmol/L (5-15); ASPARTATE AMINO TRANSFERASE 23 U/L (15-37); BILIRUBIN,TOTAL 0.5 MG/DL (0.2-1.0); BLOOD UREA NITROGEN 19 mg/dL (7-18); CALCIUM 7.7 MG/DL (8.5-10.1); CARBON DIOXIDE 32 MMOL/L (21-32); CHLORIDE 106 MMOL/L (98-107); CREATININE 0.7 MG/DL (0.55-1.30); POTASSIUM 4.3 MMOL/L (3.5-5.1); SODIUM 144 MMOL/L (136-145)
[2017-07-13] MEDS: Pantoprazole Inj IV SCH (08:29)
[2017-07-13] MEDS: Heparin 5000 units/ml inj SUBQ SCH ×2 (08:30→21:05)
--- NOTE | 2017-07-13 10:49 | Pulmonology Progress Note ---
Assessment/Plan Problems: (1) Pneumonia (2) Respiratory failure with hypoxia (3) Altered level of consciousness (4) Dementia (5) History of CVA (cerebrovascular accident) (6) CAD (coronary artery disease) Assessment/Plan titrate bipap laxis times one echo reviewed Cardio to see dc IV fluid abx as per ID ,check cultures. Subjective Constitutional: Reports: no symptoms HEENT: Repors: no symptoms Respiratory: Reports: no symptoms Cardiovascular: Reports: no symptoms Gastrointestinal/Abdominal: Reports: no symptoms Allergies: Coded Allergies: No Known Allergies (Unverified , 07/11/17) Objective Last 24 Hour Vital Signs Date Time Temp Pulse Resp B/P (MAP) Pulse Ox O2 Delivery O2 Flow Rate FiO2 07/13/17 10:36 91 20 98 Facial 30 07/13/17 09:26 95 20 97 Facial 30 07/13/17 08:00 90 07/13/17 08:00 97.8 91 23 140/68 95 Bi-pap 30 07/13/17 07:30 Bi-pap 45 07/13/17 07:30 99 Bi-pap 45 07/13/17 07:30 98 22 92 Facial 45 07/13/17 07:20 91 20 Venturi Mask 10.0 45 07/13/17 05:29 107 26 95 Facial 45 07/13/17 04:00 98.4 96 30 138/67 96 Bi-pap 30 07/13/17 04:00 99 07/13/17 03:30 120 22 93 Facial 45 07/13/17 00:00 98.6 95 32 130/58 97 Bi-pap 30 07/13/17 00:00 109 07/12/17 23:59 110 22 94 Facial 45 07/12/17 21:21 102 20 95 Facial 45 07/12/17 20:00 98.8 105 35 140/72 95 Bi-pap 30 07/12/17 20:00 110 07/12/17 19:27 112 22 94 Facial 45 07/12/17 19:02 Venturi Mask 10.0 45 07/12/17 19:02 93 Nasal Cannula 10.0 45 07/12/17 19:02 102 20 Venturi Mask 10.0 45 07/12/17 16:00 109 07/12/17 16:00 99.2 109 18 155/77 95 Nasal Cannula 2.0 07/12/17 12:00 102 1/17/18 12:00 97.1 107 18 159/87 98 Nasal Cannula 2.0 Intake and Output 07/12/17 07/13/17 19:00 07:00 Intake Total 1561.667 ml 1013.33 ml Balance 1561.667 ml 1013.33 ml Intake IV Total 1561.667 ml 1013.33 ml # Voids 3 Objective General Appearance: cachetic Lines, tubes and drains: peripheral HEENT: normocephalic Neck: non-tender, normal alignment, supple Respiratory/Chest: chest wall non-tender, crackles/rales, rhonchi - left, rhonchi - right Cardiovascular/Chest: normal peripheral pulses, normal rate Abdomen: normal bowel sounds, non tender Genitourinary/Rectal: normal genital exam, normal rectal exam, normal prostate exam Extremities: normal range of motion Microbiology Date/Time Source Procedure Growth Status 07/11/17 07:45 Blood Blood Culture - Preliminary NO GROWTH AFTER 24 HOURS Resulted 07/11/17 07:30 Blood Blood Culture - Preliminary NO GROWTH AFTER 24 HOURS Resulted 07/11/17 11:00 Nasal Nares MRSA Culture - Final NO METHICILLIN RESISTANT STAPH AUREUS... Complete 07/11/17 08:00 Nasal Nares Influenza Types A,B Antigen (ERIBERTO) - Final Complete 07/11/17 11:00 Rectum VRE Culture - Final Enterococcus Faecalis - Vre Complete Laboratory Tests 07/13/17 04:55: White Blood Count 13.1H, Red Blood Count 3.21L, Hemoglobin 9.9L, Hematocrit 32.3L, Mean Corpuscular Volume 101H, Mean Corpuscular Hemoglobin 30.7, Mean Corpuscular Hemoglobin Concent 30.5L, Red Cell Distribution Width 16.0H, Platelet Count 217, Mean Platelet Volume 5.5L, Neutrophils (%) (Auto) 41.5L, Lymphocytes (%) (Auto) 44.3, Monocytes (%) (Auto) 13.5H, Eosinophils (%) (Auto) 0.1, Basophils (%) (Auto) 0.6, Sodium Level 144, Potassium Level 4.3, Chloride Level 106, Carbon Dioxide Level 32, Anion Gap 6, Blood Urea Nitrogen 19H, Creatinine 0.7, Estimat Glomerular Filtration Rate , Glucose Level 84, Calcium Level 7.7L, Total Bilirubin 0.5, Aspartate Amino Transf (AST/SGOT) 23, Alanine Aminotransferase (ALT/SGPT) < 6L, Alkaline Phosphatase 61, C-Reactive Protein, Quantitative 6.7H, Total Protein 6.6, Albumin 2.5L, Globulin 4.1, Albumin/ Globulin Ratio 0.6L Current Medications Medications (Trade) Dose Ordered Sig/Sam Route PRN Reason Start Time Stop Time Status Last Admin Dose Admin Acetaminophen (Tylenol) 650 mg Q4H PRN ORAL fever 07/12/17 00:46 08/10/17 00:45 Albuterol/ Ipratropium (Albuterol/ Ipratropium) 3 ml Q4H PRN HHN Shortness of Breath 07/12/17 01:00 07/17/17 00:59 Cefepime HCl 2 gm/ Dextrose 55 ml @ 110 mls/hr Q24H IVPB 07/12/17 16:00 07/19/17 15:59 07/12/17 15:26 Clotrimazole (Lotrimin) 1 applic EVERY 12 HOURS TOPIC 07/12/17 21:00 08/11/17 20:59 07/13/17 08:30 Heparin Sodium (Porcine) (Heparin 5000 units/ml) 5,000 units EVERY 12 HOURS SUBQ 07/12/17 09:00 08/10/17 20:59 07/13/17 08:30 Morphine Sulfate (Morphine Sulfate) 4 mg Q4H PRN IVP Severe Pain (Pain Scale 7-10) 07/12/17 01:00 07/19/17 00:59 Ondansetron HCl (Zofran) 4 mg Q6H PRN IVP Nausea & Vomiting 07/12/17 00:49 08/10/17 00:48 Pantoprazole (Protonix) 40 mg DAILY IV 07/12/17 09:00 08/11/17 08:59 07/13/17 08:29 Polyethylene Glycol (Miralax) 17 gm DAILYPRN PRN ORAL Constipation 07/12/17 00:49 08/10/17 00:48 Sodium Chloride 1,000 ml @ 100 mls/hr Q10H IVLG 07/12/17 01:00 08/11/17 00:59 07/13/17 06:52 Vancomycin/Sodium Chloride 250 ml @ 166.667 mls/hr Q24H IVPB 07/12/17 08:00 07/17/17 07:59 07/13/17 08:28 JADE CHÁVEZ Jul 13, 2017 10:48
[2017-07-13 12:00] VITALS: BP 144/92
[2017-07-13 16:00] VITALS: BP 149/69
[2017-07-13] MEDS: Cefepime HCl 2 GM in D5W 55 ML IVPB SCH (16:13)
--- NOTE | 2017-07-13 18:41 | Cardiology Progress Note ---
Assessment/Plan Assessment/Plan [id number] Objective Last 24 Hour Vital Signs Date Time Temp Pulse Resp B/P (MAP) Pulse Ox O2 Delivery O2 Flow Rate FiO2 07/13/17 16:00 84 07/13/17 16:00 30 07/13/17 16:00 98.0 84 20 149/69 97 Bi-pap 30 07/13/17 15:29 89 20 94 Facial 30 07/13/17 12:00 84 07/13/17 12:00 30 07/13/17 12:00 98.4 121 18 144/92 96 Bi-pap 30 07/13/17 10:36 91 20 98 Facial 30 07/13/17 09:26 95 20 97 Facial 30 07/13/17 08:00 90 07/13/17 08:00 45 07/13/17 08:00 97.8 91 23 140/68 95 Bi-pap 30 07/13/17 07:30 Bi-pap 45 07/13/17 07:30 99 Bi-pap 45 07/13/17 07:30 98 22 92 Facial 45 07/13/17 07:20 91 20 Venturi Mask 10.0 45 07/13/17 05:29 107 26 95 Facial 45 07/13/17 04:00 98.4 96 30 138/67 96 Bi-pap 30 07/13/17 04:00 99 07/13/17 03:30 120 22 93 Facial 45 07/13/17 00:00 98.6 95 32 130/58 97 Bi-pap 30 07/13/17 00:00 109 07/12/17 23:59 110 22 94 Facial 45 07/12/17 21:21 102 20 95 Facial 45 07/12/17 20:00 98.8 105 35 140/72 95 Bi-pap 30 07/12/17 20:00 110 07/12/17 19:27 112 22 94 Facial 45 07/12/17 19:02 Venturi Mask 10.0 45 07/12/17 19:02 93 Nasal Cannula 10.0 45 07/12/17 19:02 102 20 Venturi Mask 10.0 45 07/12/17 19:00 30 Intake and Output 07/12/17 07/13/17 19:00 07:00 Intake Total 1561.667 ml 1013.33 ml Balance 1561.667 ml 1013.33 ml Intake IV Total 1561.667 ml 1013.33 ml # Voids 3 Laboratory Tests Test 07/13/17 04:55 White Blood Count 13.1 K/UL (4.8-10.8) H Red Blood Count 3.21 M/UL (4.20-5.40) L Hemoglobin 9.9 G/DL (12.0-16.0) L Hematocrit 32.3 % (37.0-47.0) L Mean Corpuscular Volume 101 FL (80-99) H Mean Corpuscular Hemoglobin 30.7 PG (27.0-31.0) Mean Corpuscular Hemoglobin Concent 30.5 G/DL (32.0-36.0) L Red Cell Distribution Width 16.0 % (11.6-14.8) H Platelet Count 217 K/UL (150-450) Mean Platelet Volume 5.5 FL (6.5-10.1) L Neutrophils (%) (Auto) 41.5 % (45.0-75.0) L Lymphocytes (%) (Auto) 44.3 % (20.0-45.0) Monocytes (%) (Auto) 13.5 % (1.0-10.0) H Eosinophils (%) (Auto) 0.1 % (0.0-3.0) Basophils (%) (Auto) 0.6 % (0.0-2.0) Sodium Level 144 MMOL/L (136-145) Potassium Level 4.3 MMOL/L (3.5-5.1) Chloride Level 106 MMOL/L (98-107) Carbon Dioxide Level 32 MMOL/L (21-32) Anion Gap 6 mmol/L (5-15) Blood Urea Nitrogen 19 mg/dL (7-18) H Creatinine 0.7 MG/DL (0.55-1.30) Estimat Glomerular Filtration Rate mL/min (>60) Glucose Level 84 MG/DL (74-106) Calcium Level 7.7 MG/DL (8.5-10.1) L Total Bilirubin 0.5 MG/DL (0.2-1.0) Aspartate Amino Transf (AST/SGOT) 23 U/L (15-37) Alanine Aminotransferase (ALT/SGPT) < 6 U/L (12-78) L Alkaline Phosphatase 61 U/L (46-116) C-Reactive Protein, Quantitative 6.7 mg/dL (0.00-0.90) H Total Protein 6.6 G/DL (6.4-8.2) Albumin 2.5 G/DL (3.4-5.0) L Globulin 4.1 g/dL Albumin/Globulin Ratio 0.6 (1.0-2.7) L Microbiology Date/Time Source Procedure Growth Status 07/11/17 07:45 Blood Blood Culture - Preliminary NO GROWTH AFTER 24 HOURS Resulted 07/11/17 07:30 Blood Blood Culture - Preliminary NO GROWTH AFTER 24 HOURS Resulted 07/11/17 11:00 Nasal Nares MRSA Culture - Final NO METHICILLIN RESISTANT STAPH AUREUS... Complete 07/11/17 08:00 Nasal Nares Influenza Types A,B Antigen (ERIBERTO) - Final Complete 07/11/17 11:00 Rectum VRE Culture - Final Enterococcus Faecalis - Vre Complete CELESTINE RODRIGUEZ Jul 13, 2017 18:41
[2017-07-13 20:00] VITALS: BP 149/76
[2017-07-13] MEDS: Miralax 17gm pkt ORAL PRN (21:05)
[2017-07-13] MEDS: LORazepam 0.5mg tab ORAL PRN (21:05)
--- NOTE | 2017-07-13 21:29 | Infectious Diseases Prog Note ---
Assessment/Plan Assessment/Plan ASSESSMENT: The patient is an 81-year-old female with Probable healthcare-associated pneumonia Status post low-grade fever leukocytosis. increased Influenza A and B negative. CRP: 6.7 Breast cancer CHF CVA Asthma PLAN: cont pt on vancomycin and cefepime d# 2 Monitor CBC Monitor BMP. Monitor cultures (blood, sputum). Monitor chest x-ray. Subjective Allergies: Coded Allergies: No Known Allergies (Unverified , 07/11/17) Subjective Afebrile Objective Vital Signs Last 24 Hour Vital Signs Date Time Temp Pulse Resp B/P (MAP) Pulse Ox O2 Delivery O2 Flow Rate FiO2 07/13/17 19:17 113 20 Nasal Cannula 2.0 28 07/13/17 19:17 Nasal Cannula 2.0 28 07/13/17 19:17 97 Nasal Cannula 28 07/13/17 16:00 84 07/13/17 16:00 30 07/13/17 16:00 98.0 84 20 149/69 97 Bi-pap 30 07/13/17 15:29 89 20 94 Facial 30 07/13/17 12:00 84 07/13/17 12:00 30 07/13/17 12:00 98.4 121 18 144/92 96 Bi-pap 30 07/13/17 10:36 91 20 98 Facial 30 07/13/17 09:26 95 20 97 Facial 30 07/13/17 08:00 90 07/13/17 08:00 45 07/13/17 08:00 97.8 91 23 140/68 95 Bi-pap 30 07/13/17 07:30 Bi-pap 45 07/13/17 07:30 99 Bi-pap 45 07/13/17 07:30 98 22 92 Facial 45 07/13/17 07:20 91 20 Venturi Mask 10.0 45 07/13/17 05:29 107 26 95 Facial 45 07/13/17 04:00 98.4 96 30 138/67 96 Bi-pap 30 07/13/17 04:00 99 07/13/17 03:30 120 22 93 Facial 45 07/13/17 00:00 98.6 95 32 130/58 97 Bi-pap 30 07/13/17 00:00 109 07/12/17 23:59 110 22 94 Facial 45 Height (Feet): 5 Height (Inches): 3.00 Weight (Pounds): 95 HEENT: mucous membranes moist Respiratory/Chest: no respiratory distress Cardiovascular: regular rhythm Abdomen: no mass Microbiology Date/Time Source Procedure Growth Status 07/11/17 07:45 Blood Blood Culture - Preliminary NO GROWTH AFTER 24 HOURS Resulted 07/11/17 07:30 Blood Blood Culture - Preliminary NO GROWTH AFTER 24 HOURS Resulted 07/11/17 11:00 Nasal Nares MRSA Culture - Final NO METHICILLIN RESISTANT STAPH AUREUS... Complete 07/11/17 08:00 Nasal Nares Influenza Types A,B Antigen (ERIBERTO) - Final Complete 07/11/17 11:00 Rectum VRE Culture - Final Enterococcus Faecalis - Vre Complete Laboratory Tests Test 07/13/17 04:55 White Blood Count 13.1 K/UL (4.8-10.8) H Red Blood Count 3.21 M/UL (4.20-5.40) L Hemoglobin 9.9 G/DL (12.0-16.0) L Hematocrit 32.3 % (37.0-47.0) L Mean Corpuscular Volume 101 FL (80-99) H Mean Corpuscular Hemoglobin 30.7 PG (27.0-31.0) Mean Corpuscular Hemoglobin Concent 30.5 G/DL (32.0-36.0) L Red Cell Distribution Width 16.0 % (11.6-14.8) H Platelet Count 217 K/UL (150-450) Mean Platelet Volume 5.5 FL (6.5-10.1) L Neutrophils (%) (Auto) 41.5 % (45.0-75.0) L Lymphocytes (%) (Auto) 44.3 % (20.0-45.0) Monocytes (%) (Auto) 13.5 % (1.0-10.0) H Eosinophils (%) (Auto) 0.1 % (0.0-3.0) Basophils (%) (Auto) 0.6 % (0.0-2.0) Sodium Level 144 MMOL/L (136-145) Potassium Level 4.3 MMOL/L (3.5-5.1) Chloride Level 106 MMOL/L (98-107) Carbon Dioxide Level 32 MMOL/L (21-32) Anion Gap 6 mmol/L (5-15) Blood Urea Nitrogen 19 mg/dL (7-18) H Creatinine 0.7 MG/DL (0.55-1.30) Estimat Glomerular Filtration Rate mL/min (>60) Glucose Level 84 MG/DL (74-106) Calcium Level 7.7 MG/DL (8.5-10.1) L Total Bilirubin 0.5 MG/DL (0.2-1.0) Aspartate Amino Transf (AST/SGOT) 23 U/L (15-37) Alanine Aminotransferase (ALT/SGPT) < 6 U/L (12-78) L Alkaline Phosphatase 61 U/L (46-116) C-Reactive Protein, Quantitative 6.7 mg/dL (0.00-0.90) H Total Protein 6.6 G/DL (6.4-8.2) Albumin 2.5 G/DL (3.4-5.0) L Globulin 4.1 g/dL Albumin/Globulin Ratio 0.6 (1.0-2.7) L Current Medications Medications (Trade) Dose Ordered Sig/Sam Route PRN Reason Start Time Stop Time Status Last Admin Dose Admin Acetaminophen (Tylenol) 650 mg Q4H PRN ORAL fever 07/12/17 00:46 08/10/17 00:45 Albuterol/ Ipratropium (Albuterol/ Ipratropium) 3 ml Q4H PRN HHN Shortness of Breath 07/12/17 01:00 07/17/17 00:59 Cefepime HCl 2 gm/ Dextrose 55 ml @ 110 mls/hr Q24H IVPB 07/12/17 16:00 07/19/17 15:59 07/13/17 16:13 Clotrimazole (Lotrimin) 1 applic EVERY 12 HOURS TOPIC 07/12/17 21:00 08/11/17 20:59 07/13/17 21:05 Heparin Sodium (Porcine) (Heparin 5000 units/ml) 5,000 units EVERY 12 HOURS SUBQ 07/12/17 09:00 08/10/17 20:59 07/13/17 21:05 Lorazepam (Ativan) 0.5 mg Q2H PRN ORAL For Anxiety 07/13/17 18:30 07/20/17 18:29 07/13/17 21:05 Morphine Sulfate (Morphine Sulfate) 4 mg Q4H PRN IVP Severe Pain (Pain Scale 7-10) 07/12/17 01:00 07/19/17 00:59 Ondansetron HCl (Zofran) 4 mg Q6H PRN IVP Nausea & Vomiting 07/12/17 00:49 08/10/17 00:48 Pantoprazole (Protonix) 40 mg DAILY IV 07/12/17 09:00 08/11/17 08:59 07/13/17 08:29 Polyethylene Glycol (Miralax) 17 gm DAILYPRN PRN ORAL Constipation 07/12/17 00:49 08/10/17 00:48 07/13/17 21:05 Vancomycin/Sodium Chloride 250 ml @ 166.667 mls/hr Q24H IVPB 07/12/17 08:00 07/17/17 07:59 07/13/17 08:28 LILIANA SMITH M.D. Jul 13, 2017 21:29
--- NOTE | 2017-07-13 22:00 | Consultation ---
DATE OF CONSULTATION: 07/13/2017 CARDIOLOGY CONSULTATION REFERRING PHYSICIAN: Jean Rose M.D. REASON FOR REFERRAL: History of congestive heart failure and now with shortness of breath. HISTORY OF PRESENT ILLNESS: This is an elderly Sami female whose information is obtained from review of the patient's chart and from my discussion with the patient through one of the staff that speaks Sami. The patient is a resident of a convalescent facility where she is noted to have several medical problems. Apparently, became more altered than usual and apparently, she was able to keep the conversation en bloc with assistance previously, but that she was unable anymore and she had been brought to the emergency room at [facility] and has been admitted to the hospital. She really denies any chest pain at this time, although she had been on BiPAP until just recently. She has no shortness of breath right now and no significant coughing, although staff indicates she has occasional cough, productive of purulent sputum. Denies any palpitations. Denies any dizziness. Her chart indicates that she has a history of several medical problems including Alzheimer dementia, ataxia, following pneumonia, urinary tract infection, breast cancer, history of CVA, history of systolic heart failure, coronary artery disease, hypertension, diastolic heart failure, decubitus ulcers, respiratory failure, and pneumonitis apparently to name a few. ALLERGIES: She has no known drug allergies. SOCIAL HISTORY: She does not smoke or drink at this time. She resides in a convalescent facility. REVIEW OF SYSTEMS: GASTROINTESTINAL: She denies any nausea, vomiting, or abdominal pain. GENITOURINARY: She does not have discomfort on urination. PULMONARY: Positive coughing as mentioned in HPI. CONSTITUTIONAL: Negative. PHYSICAL EXAMINATION: GENERAL: Shows to be elderly female, confused, communicative. VITAL SIGNS: Blood pressure anywhere between 140/60 to 149/69, temperature of 98 degrees, heart rate is anywhere between 84 to 121. NECK: Supple. No jugular venous distention. LUNGS: Crackles noted in the left base. CARDIAC: Regular rate and rhythm. No heaves, thrills, or gallops noted. ABDOMEN: Soft and nontender. Positive bowel sounds. EXTREMITIES: There is no clubbing, cyanosis, nor edema. NEUROLOGICAL: She is awake, alert, and responsive. LABORATORY AND DIAGNOSTIC DATA: Sodium 144, potassium 4.3, chloride 106, bicarbonate 32, BUN of 19, creatinine 0.7 and glucose of 86. Calcium is 7.7 with an albumin of 2.5. Liver function tests, albumin is unremarkable. One set of cardiac enzyme is negative in the emergency room. Urinalysis shows 5-10 WBCs. Her electrocardiogram shows normal sinus rhythm, normal QRS, normal P waves, left axis deviation, delay in R-wave progression, and incomplete right bundle-branch conduction defect. A chest x-ray performed in the emergency room shows interstitial disease, edema, congestive heart failure and the chest x-ray was repeated yesterday showed, no significant change. An echocardiogram has been showing ejection fraction of 55% to 60%. Normal wall motion, although posterior wall distally was not visualized, moderate aortic regurgitation, diastolic relaxation abnormality, and mild degree of pulmonary hypertension in the 50s. ASSESSMENT AND PLAN: 1. Pneumonia. 2. Respiratory insufficiency. 3. Altered level of consciousness. 4. Dementia. 5. History of diastolic heart failure. 6. History of cerebrovascular accident. 7. Coronary artery disease of unknown details. Dr. Rose, this patient was seen in cardiac consultation. The patient appears to deny any chest pain at this time. Her EKG is negative for ischemic changes. She will have repeat set of cardiac enzymes and the EKG in the morning. Her echocardiogram was reviewed and the patient continued to get breathing treatments and antibiotics and BiPAP support. I will follow the patient along with you. She does have a component of congestive heart failure, diastolic and the IV fluids that she was receiving is already discontinued and the patient has received one dose of diuretics. We will follow the patient along. Guerrero Martinez M.D. DR: YI JOB#: [id number] CC:
[2017-07-14] VITALS: BP 158/86
[2017-07-14 04:00] VITALS: BP 148/70
[2017-07-14 07:38] LABS: BASOPHILS % (AUTO) 1.7 % (0.0-2.0); EOSINOPHILS % (AUTO) 0.6 % (0.0-3.0); HEMATOCRIT 30.4 % (37.0-47.0); HEMOGLOBIN 9.8 G/DL (12.0-16.0); LYMPHOCYTES % (AUTO) 46.6 % (20.0-45.0); MEAN CORPUSCULAR VOLUME 96 FL (80-99); MONOCYTES % (AUTO) 12.5 % (1.0-10.0); NEUTROPHILS % (AUTO) 38.7 % (45.0-75.0); PLATELET COUNT 177 K/UL (150-450); RED BLOOD COUNT 3.15 M/UL (4.20-5.40); RED CELL DISTRIBUTION WIDTH 15.2 % (11.6-14.8); WHITE BLOOD COUNT 9.4 K/UL (4.8-10.8)
[2017-07-14 08:00] VITALS: BP 157/91
[2017-07-14] MEDS: Pantoprazole Inj IV SCH (09:01)
[2017-07-14] MEDS: Heparin 5000 units/ml inj SUBQ SCH ×2 (09:02→21:40)
[2017-07-14 09:46] LABS: ALANINE AMINOTRANSFERASE 7 U/L (12-78); ALBUMIN 2.6 G/DL (3.4-5.0); ALBUMIN/GLOBULIN RATIO 0.7 (1.0-2.7); ALKALINE PHOSPHATASE 56 U/L (46-116); ANION GAP 8 mmol/L (5-15); ASPARTATE AMINO TRANSFERASE 24 U/L (15-37); BILIRUBIN,TOTAL 0.5 MG/DL (0.2-1.0); BLOOD UREA NITROGEN 18 mg/dL (7-18); CALCIUM 8.2 MG/DL (8.5-10.1); CARBON DIOXIDE 33 MMOL/L (21-32); CHLORIDE 103 MMOL/L (98-107); CREATININE 0.4 MG/DL (0.55-1.30); POTASSIUM 4.4 MMOL/L (3.5-5.1); SODIUM 144 MMOL/L (136-145)
[2017-07-14] MEDS ORDERED: Vancomycin 1gm/D5W 275ml IVPB ONE ×2 (10:00)
--- NOTE | 2017-07-14 11:25 | Pulmonology Progress Note ---
Assessment/Plan Problems: (1) Pneumonia (2) Respiratory failure with hypoxia (3) Altered level of consciousness (4) Dementia (5) History of CVA (cerebrovascular accident) (6) CAD (coronary artery disease) Assessment/Plan titrate bipap laxis times one echo reviewed Cardio to see wbc is lower anemai w/u RLL infiltrate unchanged. Subjective ROS Limited/Unobtainable: No Interval Events: still on bipap, looks comfortable Allergies: Coded Allergies: No Known Allergies (Unverified , 07/11/17) Objective Last 24 Hour Vital Signs Date Time Temp Pulse Resp B/P (MAP) Pulse Ox O2 Delivery O2 Flow Rate FiO2 07/14/17 09:43 117 33 98 Facial 30 07/14/17 08:00 103 07/14/17 08:00 98.1 85 20 157/91 100 Bi-pap 40 07/14/17 08:00 40 07/14/17 06:35 109 34 Bi-pap 07/14/17 06:35 99 Bi-pap 45 07/14/17 06:35 Bi-pap 45 07/14/17 06:35 109 34 99 Facial 30 07/14/17 05:14 84 24 100 Facial 30 07/14/17 04:00 90 07/14/17 04:00 98.0 87 18 148/70 100 Bi-pap 40 07/14/17 02:10 40 07/14/17 02:00 25 88 Nasal Cannula 2.0 07/14/17 00:00 97.9 102 20 158/86 93 Nasal Cannula 2.0 07/14/17 00:00 98 07/13/17 20:00 98.4 92 20 149/76 96 Nasal Cannula 2.0 07/13/17 20:00 88 07/13/17 19:17 113 20 Nasal Cannula 2.0 28 07/13/17 19:17 Nasal Cannula 2.0 28 07/13/17 19:17 97 Nasal Cannula 28 07/13/17 16:00 84 07/13/17 16:00 30 07/13/17 16:00 98.0 84 20 149/69 97 Bi-pap 30 07/13/17 15:29 89 20 94 Facial 30 07/13/17 12:00 84 07/13/17 12:00 30 07/13/17 12:00 98.4 121 18 144/92 96 Bi-pap 30 Intake and Output 07/13/17 07/14/17 19:00 07:00 Intake Total 705.00 ml 375 ml Output Total 775 ml Balance 705.00 ml -400 ml Intake Oral 375 ml IV Total 705.00 ml Output Urine Total 775 ml # Voids 3 4 Objective General Appearance: cachetic Lines, tubes and drains: peripheral HEENT: normocephalic Neck: non-tender, normal alignment, supple Respiratory/Chest: chest wall non-tender, crackles/rales, rhonchi - left, rhonchi - right Cardiovascular/Chest: normal peripheral pulses, normal rate Abdomen: normal bowel sounds, non tender Genitourinary/Rectal: normal genital exam, normal rectal exam, normal prostate exam Extremities: normal range of motion Laboratory Tests 07/14/17 04:00: Troponin I 0.021 07/14/17 07:00: White Blood Count 9.4, Red Blood Count 3.15L, Hemoglobin 9.8L, Hematocrit 30.4L , Mean Corpuscular Volume 96, Mean Corpuscular Hemoglobin 31.1H, Mean Corpuscular Hemoglobin Concent 32.2, Red Cell Distribution Width 15.2H, Platelet Count 177, Mean Platelet Volume 5.5L, Neutrophils (%) (Auto) 38.7L, Lymphocytes (%) (Auto) 46.6H, Monocytes (%) (Auto) 12.5H, Eosinophils (%) (Auto ) 0.6, Basophils (%) (Auto) 1.7, Sodium Level 144, Potassium Level 4.4, Chloride Level 103, Carbon Dioxide Level 33H, Anion Gap 8, Blood Urea Nitrogen 18, Creatinine 0.4L, Estimat Glomerular Filtration Rate , Glucose Level 107H, Calcium Level 8.2L, Total Bilirubin 0.5, Aspartate Amino Transf (AST/SGOT) 24, Alanine Aminotransferase (ALT/SGPT) 7L, Alkaline Phosphatase 56, Pro-B-Type Natriuretic Peptide 5765H, Total Protein 6.2L, Albumin 2.6L, Globulin 3.6, Albumin/Globulin Ratio 0.7L, Vancomycin Level Trough 7.4 Current Medications Medications (Trade) Dose Ordered Sig/Sam Route PRN Reason Start Time Stop Time Status Last Admin Dose Admin Acetaminophen (Tylenol) 650 mg Q4H PRN ORAL fever 07/12/17 00:46 08/10/17 00:45 Albuterol/ Ipratropium (Albuterol/ Ipratropium) 3 ml Q4H PRN HHN Shortness of Breath 07/12/17 01:00 07/17/17 00:59 Cefepime HCl 2 gm/ Dextrose 55 ml @ 110 mls/hr Q24H IVPB 07/12/17 16:00 07/19/17 15:59 07/13/17 16:13 Clotrimazole (Lotrimin) 1 applic EVERY 12 HOURS TOPIC 07/12/17 21:00 08/11/17 20:59 07/14/17 09:01 Heparin Sodium (Porcine) (Heparin 5000 units/ml) 5,000 units EVERY 12 HOURS SUBQ 07/12/17 09:00 08/10/17 20:59 07/14/17 09:02 Lorazepam (Ativan) 0.5 mg Q2H PRN ORAL For Anxiety 07/13/17 18:30 07/20/17 18:29 07/13/17 21:05 Morphine Sulfate (Morphine Sulfate) 4 mg Q4H PRN IVP Severe Pain (Pain Scale 7-10) 07/12/17 01:00 07/19/17 00:59 Ondansetron HCl (Zofran) 4 mg Q6H PRN IVP Nausea & Vomiting 07/12/17 00:49 08/10/17 00:48 Pantoprazole (Protonix) 40 mg DAILY IV 07/12/17 09:00 08/11/17 08:59 07/14/17 09:01 Polyethylene Glycol (Miralax) 17 gm DAILYPRN PRN ORAL Constipation 07/12/17 00:49 08/10/17 00:48 07/13/17 21:05 Vancomycin HCl (Vanco rx to dose) 1 ea DAILY PRN MISC . 07/14/17 08:45 08/13/17 08:44 Vancomycin HCl 500 mg/Dextrose 110 ml @ 110 mls/hr Q12HR@1000,2200 IVPB 07/14/17 22:00 07/19/17 21:59 Vancomycin HCl 1 gm/Dextrose 275 ml @ 183.708 mls/hr ONCE ONCE IVPB 07/14/17 10:00 07/14/17 11:29 07/14/17 09:56 JADE CHÁVEZ Jul 14, 2017 11:25
[2017-07-14 12:00] VITALS: BP 138/83
--- NOTE | 2017-07-14 12:18 | Consultation ---
History of Present Illness General Date patient seen: Jul 13, 2017 Chief Complaint: Altered Level of Consciousness Present Illness HPI 81-year-old female, who [facility] with multiple medical problems as listed below, who was admitted to this medical center due to shortness of breath, cough, lethargic. Allergies: Coded Allergies: No Known Allergies (Unverified , 07/11/17) Medication History Scheduled Albuterol Sulfate* (Proair Hfa*), 1 PUFF INH Q4HR, (Reported) Ascorbic Acid* (Vitamin C*), 500 MG ORAL TWICE A DAY, (Reported) Aspirin* (Aspir 81*), 81 MG ORAL DAILY, (Reported) Atorvastatin Calcium* (Atorvastatin Calcium*), 40 MG ORAL BEDTIME, (Reported) Carvedilol (Coreg), 3.125 MG ORAL EVERY 12 HOURS, (Reported) Docusate Sodium* (Colace*), 100 MG ORAL TWICE A DAY, (Reported) Multivitamin With Minerals (Multivitamins With Minerals*), 1 TAB ORAL DAILY, ( Reported) Scheduled PRN Acetaminophen* (Acetaminophen 325MG Tablet*), 650 MG ORAL Q8HR PRN for For Pain Level <=5, (Reported) Acetaminophen* (Acetaminophen 325MG Tablet*), 650 MG ORAL Q8HR PRN for Fever/ Headache/Mild Pain, (Reported) Bisacodyl (Dulcolax), 10 MG RC for Constipation, (Reported) Magnesium Hydroxide* (Milk Of Magnesia*), 30 ML ORAL NEEDED PRN for Constipation, (Reported) Patient History Limited by: medical condition History Provided By: Patient, Significant Other, PMD Healthcare decision maker Zayda Doherty/daughter Resuscitation status Full Code Advanced Directive on File No Past Medical/Surgical History Past Medical/Surgical History: (1) CHF (congestive heart failure) (2) Respiratory failure with hypoxia (3) CAD (coronary artery disease) (4) Dementia (5) History of CVA (cerebrovascular accident) (6) Pneumonia (7) Altered level of consciousness Review of Systems Psychiatric: Reports: see HPI, prior hx, anxiety, depressed feelings, emotional problems Physical Exam General Appearance: no apparent distress, alert, confused, agitated Neurologic: depressed affect Last 24 Hour Vital Signs Date Time Temp Pulse Resp B/P (MAP) Pulse Ox O2 Delivery O2 Flow Rate FiO2 07/14/17 10:30 90 30 97 Facial 30 07/14/17 09:43 117 33 98 Facial 30 07/14/17 08:00 103 07/14/17 08:00 98.1 85 20 157/91 100 Bi-pap 40 07/14/17 08:00 40 07/14/17 06:35 109 34 Bi-pap 07/14/17 06:35 99 Bi-pap 45 07/14/17 06:35 Bi-pap 45 07/14/17 06:35 109 34 99 Facial 30 07/14/17 05:14 84 24 100 Facial 30 07/14/17 04:00 90 07/14/17 04:00 98.0 87 18 148/70 100 Bi-pap 40 07/14/17 02:10 40 07/14/17 02:00 25 88 Nasal Cannula 2.0 07/14/17 00:00 97.9 102 20 158/86 93 Nasal Cannula 2.0 07/14/17 00:00 98 07/13/17 20:00 98.4 92 20 149/76 96 Nasal Cannula 2.0 07/13/17 20:00 88 07/13/17 19:17 113 20 Nasal Cannula 2.0 28 07/13/17 19:17 Nasal Cannula 2.0 28 07/13/17 19:17 97 Nasal Cannula 28 07/13/17 16:00 84 07/13/17 16:00 30 07/13/17 16:00 98.0 84 20 149/69 97 Bi-pap 30 07/13/17 15:29 89 20 94 Facial 30 Intake and Output 07/13/17 07/14/17 19:00 07:00 Intake Total 705.00 ml 375 ml Output Total 775 ml Balance 705.00 ml -400 ml Intake Oral 375 ml IV Total 705.00 ml Output Urine Total 775 ml # Voids 3 4 Laboratory Tests Test 07/14/17 04:00 07/14/17 07:00 Troponin I 0.021 ng/mL (0.000-0.056) White Blood Count 9.4 K/UL (4.8-10.8) Red Blood Count 3.15 M/UL (4.20-5.40) L Hemoglobin 9.8 G/DL (12.0-16.0) L Hematocrit 30.4 % (37.0-47.0) L Mean Corpuscular Volume 96 FL (80-99) Mean Corpuscular Hemoglobin 31.1 PG (27.0-31.0) H Mean Corpuscular Hemoglobin Concent 32.2 G/DL (32.0-36.0) Red Cell Distribution Width 15.2 % (11.6-14.8) H Platelet Count 177 K/UL (150-450) Mean Platelet Volume 5.5 FL (6.5-10.1) L Neutrophils (%) (Auto) 38.7 % (45.0-75.0) L Lymphocytes (%) (Auto) 46.6 % (20.0-45.0) H Monocytes (%) (Auto) 12.5 % (1.0-10.0) H Eosinophils (%) (Auto) 0.6 % (0.0-3.0) Basophils (%) (Auto) 1.7 % (0.0-2.0) Sodium Level 144 MMOL/L (136-145) Potassium Level 4.4 MMOL/L (3.5-5.1) Chloride Level 103 MMOL/L (98-107) Carbon Dioxide Level 33 MMOL/L (21-32) H Anion Gap 8 mmol/L (5-15) Blood Urea Nitrogen 18 mg/dL (7-18) Creatinine 0.4 MG/DL (0.55-1.30) L Estimat Glomerular Filtration Rate mL/min (>60) Glucose Level 107 MG/DL (74-106) H Calcium Level 8.2 MG/DL (8.5-10.1) L Total Bilirubin 0.5 MG/DL (0.2-1.0) Aspartate Amino Transf (AST/SGOT) 24 U/L (15-37) Alanine Aminotransferase (ALT/SGPT) 7 U/L (12-78) L Alkaline Phosphatase 56 U/L (46-116) Pro-B-Type Natriuretic Peptide 5765 pg/mL (0-125) H Total Protein 6.2 G/DL (6.4-8.2) L Albumin 2.6 G/DL (3.4-5.0) L Globulin 3.6 g/dL Albumin/Globulin Ratio 0.7 (1.0-2.7) L Vancomycin Level Trough 7.4 ug/mL (5.0-12.0) Height (Feet): 5 Height (Inches): 3.00 Weight (Pounds): 95 Medications Current Medications Medications (Trade) Dose Ordered Sig/Sam Route PRN Reason Start Time Stop Time Status Last Admin Dose Admin Acetaminophen (Tylenol) 650 mg Q4H PRN ORAL fever 07/12/17 00:46 08/10/17 00:45 Albuterol/ Ipratropium (Albuterol/ Ipratropium) 3 ml Q4H PRN HHN Shortness of Breath 07/12/17 01:00 07/17/17 00:59 Cefepime HCl 2 gm/ Dextrose 55 ml @ 110 mls/hr Q24H IVPB 07/12/17 16:00 07/19/17 15:59 07/13/17 16:13 Clotrimazole (Lotrimin) 1 applic EVERY 12 HOURS TOPIC 07/12/17 21:00 08/11/17 20:59 07/14/17 09:01 Heparin Sodium (Porcine) (Heparin 5000 units/ml) 5,000 units EVERY 12 HOURS SUBQ 07/12/17 09:00 08/10/17 20:59 07/14/17 09:02 Lorazepam (Ativan) 0.5 mg Q2H PRN ORAL For Anxiety 07/13/17 18:30 07/20/17 18:29 07/13/17 21:05 Morphine Sulfate (Morphine Sulfate) 4 mg Q4H PRN IVP Severe Pain (Pain Scale 7-10) 07/12/17 01:00 07/19/17 00:59 Ondansetron HCl (Zofran) 4 mg Q6H PRN IVP Nausea & Vomiting 07/12/17 00:49 08/10/17 00:48 Pantoprazole (Protonix) 40 mg DAILY IV 07/12/17 09:00 08/11/17 08:59 07/14/17 09:01 Polyethylene Glycol (Miralax) 17 gm DAILYPRN PRN ORAL Constipation 07/12/17 00:49 08/10/17 00:48 07/13/17 21:05 Sodium Chloride 1,000 ml @ 30 mls/hr Q24H IV 07/14/17 12:00 08/13/17 11:59 Vancomycin HCl (Vanco rx to dose) 1 ea DAILY PRN MISC . 07/14/17 08:45 08/13/17 08:44 Vancomycin HCl 500 mg/Dextrose 110 ml @ 110 mls/hr Q12HR@1000,2200 IVPB 07/14/17 22:00 07/19/17 21:59 Assessment/Plan Status: stable, progressing Assessment/Plan encephalopathy agitation -cont emberivan Cassandra Trinh M.D. Jul 14, 2017 12:18
--- NOTE | 2017-07-14 12:30 | Infectious Diseases Prog Note ---
Assessment/Plan Assessment/Plan ASSESSMENT: The patient is an 81-year-old female with Probable healthcare-associated pneumonia 07/12 XRAY : evidence of interstitial edema. There are probable small bilateral pleural effusions. low-grade fever, sp leukocytosis. sp Influenza A and B negative. CRP: 6.7 Breast cancer CHF CVA Asthma PLAN: cont pt on vancomycin and cefepime d# 3 / 7 Monitor CBC Monitor BMP. Monitor cultures (blood, sputum). Monitor chest x-ray SPUTUM CX ( re-ordered ) ON BiPAP Subjective Constitutional: Denies: no symptoms, fever, chills, fatigue, anorexia, drenching sweats, other Allergies: Coded Allergies: No Known Allergies (Unverified , 07/11/17) Subjective Afebrile Objective Vital Signs Last 24 Hour Vital Signs Date Time Temp Pulse Resp B/P (MAP) Pulse Ox O2 Delivery O2 Flow Rate FiO2 07/14/17 10:30 90 30 97 Facial 30 07/14/17 09:43 117 33 98 Facial 30 07/14/17 08:00 103 07/14/17 08:00 98.1 85 20 157/91 100 Bi-pap 40 07/14/17 08:00 40 07/14/17 06:35 109 34 Bi-pap 07/14/17 06:35 99 Bi-pap 45 07/14/17 06:35 Bi-pap 45 07/14/17 06:35 109 34 99 Facial 30 07/14/17 05:14 84 24 100 Facial 30 07/14/17 04:00 90 07/14/17 04:00 98.0 87 18 148/70 100 Bi-pap 40 07/14/17 02:10 40 07/14/17 02:00 25 88 Nasal Cannula 2.0 07/14/17 00:00 97.9 102 20 158/86 93 Nasal Cannula 2.0 07/14/17 00:00 98 07/13/17 20:00 98.4 92 20 149/76 96 Nasal Cannula 2.0 07/13/17 20:00 88 07/13/17 19:17 113 20 Nasal Cannula 2.0 28 07/13/17 19:17 Nasal Cannula 2.0 28 07/13/17 19:17 97 Nasal Cannula 28 07/13/17 16:00 84 07/13/17 16:00 30 07/13/17 16:00 98.0 84 20 149/69 97 Bi-pap 30 07/13/17 15:29 89 20 94 Facial 30 Height (Feet): 5 Height (Inches): 3.00 Weight (Pounds): 95 HEENT: anicteric Respiratory/Chest: no respiratory distress Cardiovascular: no gallop/murmur Abdomen: no organomegaly Laboratory Tests Test 07/14/17 04:00 07/14/17 07:00 Troponin I 0.021 ng/mL (0.000-0.056) White Blood Count 9.4 K/UL (4.8-10.8) Red Blood Count 3.15 M/UL (4.20-5.40) L Hemoglobin 9.8 G/DL (12.0-16.0) L Hematocrit 30.4 % (37.0-47.0) L Mean Corpuscular Volume 96 FL (80-99) Mean Corpuscular Hemoglobin 31.1 PG (27.0-31.0) H Mean Corpuscular Hemoglobin Concent 32.2 G/DL (32.0-36.0) Red Cell Distribution Width 15.2 % (11.6-14.8) H Platelet Count 177 K/UL (150-450) Mean Platelet Volume 5.5 FL (6.5-10.1) L Neutrophils (%) (Auto) 38.7 % (45.0-75.0) L Lymphocytes (%) (Auto) 46.6 % (20.0-45.0) H Monocytes (%) (Auto) 12.5 % (1.0-10.0) H Eosinophils (%) (Auto) 0.6 % (0.0-3.0) Basophils (%) (Auto) 1.7 % (0.0-2.0) Sodium Level 144 MMOL/L (136-145) Potassium Level 4.4 MMOL/L (3.5-5.1) Chloride Level 103 MMOL/L (98-107) Carbon Dioxide Level 33 MMOL/L (21-32) H Anion Gap 8 mmol/L (5-15) Blood Urea Nitrogen 18 mg/dL (7-18) Creatinine 0.4 MG/DL (0.55-1.30) L Estimat Glomerular Filtration Rate mL/min (>60) Glucose Level 107 MG/DL (74-106) H Calcium Level 8.2 MG/DL (8.5-10.1) L Total Bilirubin 0.5 MG/DL (0.2-1.0) Aspartate Amino Transf (AST/SGOT) 24 U/L (15-37) Alanine Aminotransferase (ALT/SGPT) 7 U/L (12-78) L Alkaline Phosphatase 56 U/L (46-116) Pro-B-Type Natriuretic Peptide 5765 pg/mL (0-125) H Total Protein 6.2 G/DL (6.4-8.2) L Albumin 2.6 G/DL (3.4-5.0) L Globulin 3.6 g/dL Albumin/Globulin Ratio 0.7 (1.0-2.7) L Vancomycin Level Trough 7.4 ug/mL (5.0-12.0) Current Medications Medications (Trade) Dose Ordered Sig/Sam Route PRN Reason Start Time Stop Time Status Last Admin Dose Admin Acetaminophen (Tylenol) 650 mg Q4H PRN ORAL fever 07/12/17 00:46 08/10/17 00:45 Albuterol/ Ipratropium (Albuterol/ Ipratropium) 3 ml Q4H PRN HHN Shortness of Breath 07/12/17 01:00 07/17/17 00:59 Cefepime HCl 2 gm/ Dextrose 55 ml @ 110 mls/hr Q24H IVPB 07/12/17 16:00 07/19/17 15:59 07/13/17 16:13 Clotrimazole (Lotrimin) 1 applic EVERY 12 HOURS TOPIC 07/12/17 21:00 08/11/17 20:59 07/14/17 09:01 Heparin Sodium (Porcine) (Heparin 5000 units/ml) 5,000 units EVERY 12 HOURS SUBQ 07/12/17 09:00 08/10/17 20:59 07/14/17 09:02 Lorazepam (Ativan) 0.5 mg Q2H PRN ORAL For Anxiety 07/13/17 18:30 07/20/17 18:29 07/13/17 21:05 Morphine Sulfate (Morphine Sulfate) 4 mg Q4H PRN IVP Severe Pain (Pain Scale 7-10) 07/12/17 01:00 07/19/17 00:59 Ondansetron HCl (Zofran) 4 mg Q6H PRN IVP Nausea & Vomiting 07/12/17 00:49 08/10/17 00:48 Pantoprazole (Protonix) 40 mg DAILY IV 07/12/17 09:00 08/11/17 08:59 07/14/17 09:01 Polyethylene Glycol (Miralax) 17 gm DAILYPRN PRN ORAL Constipation 07/12/17 00:49 08/10/17 00:48 07/13/17 21:05 Sodium Chloride 1,000 ml @ 30 mls/hr Q24H IV 07/14/17 12:00 08/13/17 11:59 07/14/17 12:20 Vancomycin HCl (Vanco rx to dose) 1 ea DAILY PRN MISC . 07/14/17 08:45 08/13/17 08:44 Vancomycin HCl 500 mg/Dextrose 110 ml @ 110 mls/hr Q12HR@1000,2200 IVPB 07/14/17 22:00 07/19/17 21:59 LILIANA SMITH M.D. Jul 14, 2017 12:30
--- NOTE | 2017-07-14 12:34 | Diagnostic Imaging Report ---
Indication: Dyspnea Comparison: 07/12/2017 A single view chest radiograph was obtained. Findings: Heart size and mediastinal contours are stable. There is residual opacification/edema. This is unchanged. There are small bilateral pleural effusions and patchy bibasilar space opacities. There is no pneumothorax. Osteopenia, scoliosis and multilevel degenerative change of the spine. IMPRESSION: No significant interval change in interstitial opacification/edema, small bilateral pleural effusions and patchy bibasilar airspace opacities.
[2017-07-14] MEDS: Cefepime HCl 2 GM in D5W 55 ML IVPB SCH (15:48)
[2017-07-14 16:00] VITALS: BP 146/77
--- NOTE | 2017-07-14 17:52 | Cardiology Progress Note ---
Assessment/Plan Assessment/Plan 1. Pneumonia. 2. Respiratory insufficiency. 3. Altered level of consciousness. 4. Dementia. 5. History of diastolic heart failure. 6. History of cerebrovascular accident. 7. Coronary artery disease of unknown details. spot dose diuretic depending on her bp and na level on bipap cxr noted tele sinus echo noted Subjective ROS Limited/Unobtainable: Yes Objective Last 24 Hour Vital Signs Date Time Temp Pulse Resp B/P (MAP) Pulse Ox O2 Delivery O2 Flow Rate FiO2 07/14/17 16:50 84 19 98 Facial 30 07/14/17 16:00 97.9 87 20 146/77 99 07/14/17 14:55 84 28 98 Facial 30 07/14/17 12:50 108 26 96 Facial 30 07/14/17 12:00 85 07/14/17 12:00 98.1 83 21 138/83 96 07/14/17 10:30 90 30 97 Facial 30 07/14/17 08:43 117 33 98 Facial 30 07/14/17 08:00 103 07/14/17 08:00 98.1 85 20 157/91 100 Bi-pap 40 07/14/17 08:00 40 07/14/17 06:35 109 34 Bi-pap 07/14/17 06:35 99 Bi-pap 45 07/14/17 06:35 Bi-pap 45 07/14/17 06:35 109 34 99 Facial 30 07/14/17 05:14 84 24 100 Facial 30 07/14/17 04:00 90 07/14/17 04:00 98.0 87 18 148/70 100 Bi-pap 40 07/14/17 02:10 40 07/14/17 02:00 25 88 Nasal Cannula 2.0 07/14/17 00:00 97.9 102 20 158/86 93 Nasal Cannula 2.0 07/14/17 00:00 98 07/13/17 20:00 98.4 92 20 149/76 96 Nasal Cannula 2.0 07/13/17 20:00 88 07/13/17 19:17 113 20 Nasal Cannula 2.0 28 07/13/17 19:17 Nasal Cannula 2.0 28 07/13/17 19:17 97 Nasal Cannula 28 General Appearance: agitated, other - sitter at bedisde Neck: supple Cardiovascular: normal rate, regular rhythm Respiratory/Chest: crackles/rales - left ant Abdomen: normal bowel sounds, non tender, soft Extremities: no swelling Intake and Output 07/13/17 07/14/17 19:00 07:00 Intake Total 705.00 ml 375 ml Output Total 775 ml Balance 705.00 ml -400 ml Intake Oral 375 ml IV Total 705.00 ml Output Urine Total 775 ml # Voids 3 4 Laboratory Tests Test 07/14/17 04:00 07/14/17 07:00 Troponin I 0.021 ng/mL (0.000-0.056) White Blood Count 9.4 K/UL (4.8-10.8) Red Blood Count 3.15 M/UL (4.20-5.40) L Hemoglobin 9.8 G/DL (12.0-16.0) L Hematocrit 30.4 % (37.0-47.0) L Mean Corpuscular Volume 96 FL (80-99) Mean Corpuscular Hemoglobin 31.1 PG (27.0-31.0) H Mean Corpuscular Hemoglobin Concent 32.2 G/DL (32.0-36.0) Red Cell Distribution Width 15.2 % (11.6-14.8) H Platelet Count 177 K/UL (150-450) Mean Platelet Volume 5.5 FL (6.5-10.1) L Neutrophils (%) (Auto) 38.7 % (45.0-75.0) L Lymphocytes (%) (Auto) 46.6 % (20.0-45.0) H Monocytes (%) (Auto) 12.5 % (1.0-10.0) H Eosinophils (%) (Auto) 0.6 % (0.0-3.0) Basophils (%) (Auto) 1.7 % (0.0-2.0) Sodium Level 144 MMOL/L (136-145) Potassium Level 4.4 MMOL/L (3.5-5.1) Chloride Level 103 MMOL/L (98-107) Carbon Dioxide Level 33 MMOL/L (21-32) H Anion Gap 8 mmol/L (5-15) Blood Urea Nitrogen 18 mg/dL (7-18) Creatinine 0.4 MG/DL (0.55-1.30) L Estimat Glomerular Filtration Rate mL/min (>60) Glucose Level 107 MG/DL (74-106) H Calcium Level 8.2 MG/DL (8.5-10.1) L Total Bilirubin 0.5 MG/DL (0.2-1.0) Aspartate Amino Transf (AST/SGOT) 24 U/L (15-37) Alanine Aminotransferase (ALT/SGPT) 7 U/L (12-78) L Alkaline Phosphatase 56 U/L (46-116) Pro-B-Type Natriuretic Peptide 5765 pg/mL (0-125) H Total Protein 6.2 G/DL (6.4-8.2) L Albumin 2.6 G/DL (3.4-5.0) L Globulin 3.6 g/dL Albumin/Globulin Ratio 0.7 (1.0-2.7) L Vancomycin Level Trough 7.4 ug/mL (5.0-12.0) CELESTINE RODRIGUEZ Jul 14, 2017 17:52
[2017-07-14] MEDS ORDERED: Tubing IV Secondary IV ONE (19:36)
[2017-07-14 20:00] VITALS: BP 135/81
[2017-07-14] MEDS: Vancomycin 500mg/D5W 110ml IVPB SCH ×2 (21:41)
--- NOTE | 2017-07-14 22:30 | Progress Note ---
DATE: 07/14/2017 SUBJECTIVE: The patient continues to be confused. No behavior issues. The patient has episodes of agitation. The patient has passed swallow study. Therefore, the medication was changed from intravenous to p.o. The patient is manageable. MENTAL STATUS EXAMINATION: The patient is lethargic and confused. Mood is neutral. Affect is flat, congruent with mood. Thought process is concrete. Thought content, no suicidal or homicidal ideations. ASSESSMENT: 1. Encephalopathy. 2. Agitation. PLAN: We will continue current medications. Cassandra Ferris M.D. DR: DAWN JOB#: [id number] CC:
[2017-07-15] VITALS: BP 128/69
[2017-07-15 04:00] VITALS: BP 146/73
--- NOTE | 2017-07-15 07:17 | Pulmonology Progress Note ---
Assessment/Plan Assessment/Plan ASSESSMENT Acute hypoxemic hypercapnic RF requiring BiPAP possible HCAP( RLL) CHF with diastolic dysfunction Acute toxic metabolic encephalopathy ( 2 to infectious process and hypoxemia) Asthma CVA agitation moderate pulmonary HTN Breast CA severe protein calorie malnutrition dysphagia PLAN OF CARE off Bipap pulm toilet fup CXR + CHF empiric abx Influenza and bl cx negative, sputum cx if able ID follows ECHO with pEF 55-60% and RVSP of 50 c/w moderate pulmonary HTN Spot diuresis depending on Na and BP Cardio follows Anemia w/up noted, sufficient iron, borderline folate, add to existing regimen monitor HH ; transfuse prn DVT GI prophylaxis pain [id number] Bowel regimen psych follows psych med regimen optimized PT/OT diet as per ST recom with strict aspiration precautions recommended VSS, can be done as outpt dietary recom implemented for nutritional support dc plan for SNF transfer to [facility] case discussed and evaluated by supervising physician Subjective Allergies: Coded Allergies: No Known Allergies (Unverified , 07/11/17) Subjective afebrile, mild leukocytosis resolved, weaned to O2 via NC Objective Last 24 Hour Vital Signs Date Time Temp Pulse Resp B/P (MAP) Pulse Ox O2 Delivery O2 Flow Rate FiO2 07/15/17 05:16 74 24 100 Facial 2.0 30 07/15/17 04:00 79 07/15/17 04:00 97.8 71 18 146/73 100 Bi-pap 30 07/15/17 03:45 79 24 100 Facial 2.0 30 07/15/17 00:00 98.0 77 28 128/69 99 Bi-pap 30 07/15/17 00:00 30 07/15/17 00:00 79 07/14/17 23:53 85 19 98 Facial 2.0 30 07/14/17 20:52 88 19 98 Facial 2.0 30 07/14/17 20:00 30 07/14/17 20:00 78 07/14/17 20:00 97.9 77 27 135/81 99 Bi-pap 30 07/14/17 19:12 Bi-pap 30 07/14/17 19:11 98 Bi-pap 30 07/14/17 19:09 87 19 30 07/14/17 16:50 84 19 98 Facial 30 07/14/17 16:00 84 07/14/17 16:00 97.9 87 20 146/77 99 07/14/17 14:55 84 28 98 Facial 30 07/14/17 12:50 108 26 96 Facial 30 07/14/17 12:00 85 07/14/17 12:00 98.1 83 21 138/83 96 07/14/17 10:30 90 30 97 Facial 30 07/14/17 08:43 117 33 98 Facial 30 07/14/17 08:00 103 07/14/17 08:00 98.1 85 20 157/91 100 Bi-pap 40 07/14/17 08:00 40 Intake and Output 07/14/17 07/15/17 19:00 07:00 Intake Total 510.000 ml 380 ml Output Total 300 ml Balance 210.000 ml 380 ml IV Total 510.000 ml 380 ml Output Urine Total 300 ml # Voids 2 General Appearance: no acute distress, cachetic, other - awake, alert, responsive HEENT: normocephalic, atraumatic, anicteric, mucous membranes moist, other - O2 via NC Cardiovascular: normal peripheral pulses, normal rate - SR on tele , regular rhythm Abdomen: normal bowel sounds, soft, non tender, non distended Extremities: no edema, pedal pulses normal Neurologic/Psychiatric: abnormal gait, alert, responsive Musculoskeletal: atrophy - BLE Current Medications Medications (Trade) Dose Ordered Sig/Sam Route PRN Reason Start Time Stop Time Status Last Admin Dose Admin Acetaminophen (Tylenol) 650 mg Q4H PRN ORAL fever 07/12/17 00:46 08/10/17 00:45 Albuterol/ Ipratropium (Albuterol/ Ipratropium) 3 ml Q4H PRN HHN Shortness of Breath 07/12/17 01:00 07/17/17 00:59 Cefepime HCl 2 gm/ Dextrose 55 ml @ 110 mls/hr Q24H IVPB 07/12/17 16:00 07/19/17 15:59 07/14/17 15:48 Clotrimazole (Lotrimin) 1 applic EVERY 12 HOURS TOPIC 07/12/17 21:00 08/11/17 20:59 07/14/17 21:39 Heparin Sodium (Porcine) (Heparin 5000 units/ml) 5,000 units EVERY 12 HOURS SUBQ 07/12/17 09:00 08/10/17 20:59 07/14/17 21:40 Lorazepam (Ativan) 0.5 mg Q2H PRN ORAL For Anxiety 07/13/17 18:30 07/20/17 18:29 07/13/17 21:05 Morphine Sulfate (Morphine Sulfate) 4 mg Q4H PRN IVP Severe Pain (Pain Scale 7-10) 07/12/17 01:00 07/19/17 00:59 Ondansetron HCl (Zofran) 4 mg Q6H PRN IVP Nausea & Vomiting 07/12/17 00:49 08/10/17 00:48 Pantoprazole (Protonix) 40 mg DAILY IV 07/12/17 09:00 08/11/17 08:59 07/14/17 09:01 Polyethylene Glycol (Miralax) 17 gm DAILYPRN PRN ORAL Constipation 07/12/17 00:49 08/10/17 00:48 07/13/17 21:05 Sodium Chloride 1,000 ml @ 30 mls/hr Q24H IV 07/14/17 12:00 08/13/17 11:59 07/14/17 12:20 Vancomycin HCl (Vanco rx to dose) 1 ea DAILY PRN MISC . 07/14/17 08:45 08/13/17 08:44 Vancomycin HCl 500 mg/Dextrose 110 ml @ 110 mls/hr Q12HR@1000,2200 IVPB 07/14/17 22:00 07/19/17 21:59 07/14/17 21:41 Serena Orellana NP ([facility]) Jul 15, 2017 07:17
[2017-07-15 07:42] LABS: BASOPHILS % (AUTO) 1.7 % (0.0-2.0); EOSINOPHILS % (AUTO) 1.3 % (0.0-3.0); HEMATOCRIT 35.3 % (37.0-47.0); LYMPHOCYTES % (AUTO) 51.3 % (20.0-45.0); MEAN CORPUSCULAR VOLUME 97 FL (80-99); NEUTROPHILS % (AUTO) 30.7 % (45.0-75.0); PLATELET COUNT 222 K/UL (150-450); RED BLOOD COUNT 3.62 M/UL (4.20-5.40); RED CELL DISTRIBUTION WIDTH 14.7 % (11.6-14.8); WHITE BLOOD COUNT 7.5 K/UL (4.8-10.8)
[2017-07-15 07:50] LABS: INR 1.1 (0.9-1.1)
[2017-07-15 08:00] VITALS: BP 156/73
[2017-07-15 08:14] LABS: ALANINE AMINOTRANSFERASE 10 U/L (12-78); ALBUMIN 2.7 G/DL (3.4-5.0); ALBUMIN/GLOBULIN RATIO 0.6 (1.0-2.7); ALKALINE PHOSPHATASE 61 U/L (46-116); ANION GAP 6 mmol/L (5-15); ASPARTATE AMINO TRANSFERASE 25 U/L (15-37); BILIRUBIN,TOTAL 0.8 MG/DL (0.2-1.0); BLOOD UREA NITROGEN 10 mg/dL (7-18); CALCIUM 8.5 MG/DL (8.5-10.1); CARBON DIOXIDE 37 MMOL/L (21-32); CHLORIDE 98 MMOL/L (98-107); CREATININE 0.5 MG/DL (0.55-1.30); LACTATE DEHYDROGENASE 277 U/L (81-234); POTASSIUM 3.7 MMOL/L (3.5-5.1); SODIUM 141 MMOL/L (136-145)
[2017-07-15 08:32] LABS: % IRON SATURATION 48 % (15-50); IRON 76 ug/dL (50-175); TOTAL IRON BINDING CAPACITY 158 ug/dL (250-450)
[2017-07-15] MEDS: Pantoprazole Inj IV SCH (08:59)
[2017-07-15] MEDS: Heparin 5000 units/ml inj SUBQ SCH ×2 (09:01→20:27)
--- NOTE | 2017-07-15 09:38 | Diagnostic Imaging Report ---
Indication: Reason For Exam: DYSPNEA Technique: XRAY Chest 1v. Comparison: 07/14/2017 Findings: Heart remains enlarged. The aorta is again noted to be calcified. Diffuse bilateral interstitial disease is present. There is blunting of both costophrenic angles. Pulmonary vascularity is prominent. There is probably some airspace disease in the bases. Impression: Cardiomegaly with evidence of congestive heart failure. Bilateral pleural effusions. Diffuse interstitial disease with some airspace disease in the bases. No significant change from prior examination.
--- NOTE | 2017-07-15 10:09 | Infectious Diseases Prog Note ---
Assessment/Plan Assessment/Plan The patient is an 81-year-old female with Probable healthcare-associated pneumonia 07/15 CXR: Cardiomegaly with evidence of congestive heart failure. Bilateral pleural effusions. Diffuse interstitial disease with some airspace disease in the bases.No significant change from prior examination. 07/12 XRAY : evidence of interstitial edema. There are probable small bilateral pleural effusions. low-grade fever, sp leukocytosis. sp Influenza A and B negative. CRP: 6.7 Breast cancer CHF CVA Asthma VRE colonized PLAN: cont pt on vancomycin and cefepime d# 4 / 7 Monitor CBC Monitor BMP. Monitor cultures (blood, sputum). Monitor chest x-ray f/u SPUTUM CX ( re-ordered ) Aspiration precautions Subjective Allergies: Coded Allergies: No Known Allergies (Unverified , 07/11/17) Subjective afebrile no leukcoytosis off bipap and on 2l NC Objective Vital Signs Last 24 Hour Vital Signs Date Time Temp Pulse Resp B/P (MAP) Pulse Ox O2 Delivery O2 Flow Rate FiO2 07/15/17 08:00 97.9 71 18 156/73 99 Nasal Cannula 2.0 07/15/17 08:00 2.0 07/15/17 07:44 Nasal Cannula 2.0 28 07/15/17 07:44 76 20 Nasal Cannula 2.0 28 07/15/17 07:44 96 Nasal Cannula 2.0 28 07/15/17 05:16 74 24 100 Facial 2.0 30 07/15/17 04:00 79 07/15/17 04:00 97.8 71 18 146/73 100 Bi-pap 30 07/15/17 03:45 79 24 100 Facial 2.0 30 07/15/17 00:00 98.0 77 28 128/69 99 Bi-pap 30 07/15/17 00:00 30 07/15/17 00:00 79 07/14/17 23:53 85 19 98 Facial 2.0 30 07/14/17 20:52 88 19 98 Facial 2.0 30 07/14/17 20:00 30 07/14/17 20:00 78 07/14/17 20:00 97.9 77 27 135/81 99 Bi-pap 30 07/14/17 19:12 Bi-pap 30 07/14/17 19:11 98 Bi-pap 30 07/14/17 19:09 87 19 30 1/19/18 16:50 84 19 98 Facial 30 07/14/17 16:00 84 07/14/17 16:00 97.9 87 20 146/77 99 07/14/17 14:55 84 28 98 Facial 30 07/14/17 12:50 108 26 96 Facial 30 07/14/17 12:00 85 07/14/17 12:00 98.1 83 21 138/83 96 07/14/17 10:30 90 30 97 Facial 30 Height (Feet): 5 Height (Inches): 3.00 Weight (Pounds): 95 Objective HEENT: anicteric Respiratory/Chest: no respiratory distress Cardiovascular: no gallop/murmur Abdomen: no organomegaly Laboratory Tests Test 07/15/17 06:30 White Blood Count 7.5 K/UL (4.8-10.8) Red Blood Count 3.62 M/UL (4.20-5.40) L Hemoglobin 11.0 G/DL (12.0-16.0) L Hematocrit 35.3 % (37.0-47.0) L Mean Corpuscular Volume 97 FL (80-99) Mean Corpuscular Hemoglobin 30.3 PG (27.0-31.0) Mean Corpuscular Hemoglobin Concent 31.1 G/DL (32.0-36.0) L Red Cell Distribution Width 14.7 % (11.6-14.8) Platelet Count 222 K/UL (150-450) Mean Platelet Volume 5.4 FL (6.5-10.1) L Neutrophils (%) (Auto) 30.7 % (45.0-75.0) L Lymphocytes (%) (Auto) 51.3 % (20.0-45.0) H Monocytes (%) (Auto) 15.0 % (1.0-10.0) H Eosinophils (%) (Auto) 1.3 % (0.0-3.0) Basophils (%) (Auto) 1.7 % (0.0-2.0) Erythrocyte Sedimentation Rate Pending Reticulocyte Count Pending Prothrombin Time 11.2 SEC (9.30-11.50) Prothromb Time International Ratio 1.1 (0.9-1.1) Activated Partial Thromboplast Time 42 SEC (23-33) H Sodium Level 141 MMOL/L (136-145) Potassium Level 3.7 MMOL/L (3.5-5.1) Chloride Level 98 MMOL/L (98-107) Carbon Dioxide Level 37 MMOL/L (21-32) H Anion Gap 6 mmol/L (5-15) Blood Urea Nitrogen 10 mg/dL (7-18) Creatinine 0.5 MG/DL (0.55-1.30) L Estimat Glomerular Filtration Rate mL/min (>60) Glucose Level 82 MG/DL (74-106) Calcium Level 8.5 MG/DL (8.5-10.1) Iron Level 76 ug/dL (50-175) Total Iron Binding Capacity 158 ug/dL (250-450) L Percent Iron Saturation 48 % (15-50) Unsaturated Iron Binding 82 ug/dL (112-346) L Total Bilirubin 0.8 MG/DL (0.2-1.0) Aspartate Amino Transf (AST/SGOT) 25 U/L (15-37) Alanine Aminotransferase (ALT/SGPT) 10 U/L (12-78) L Alkaline Phosphatase 61 U/L (46-116) Lactate Dehydrogenase 277 U/L (81-234) H Pro-B-Type Natriuretic Peptide 7146 pg/mL (0-125) H Total Protein 7.1 G/DL (6.4-8.2) Albumin 2.7 G/DL (3.4-5.0) L Globulin 4.4 g/dL Albumin/Globulin Ratio 0.6 (1.0-2.7) L Vitamin B12 Level 655 PG/ML (193-986) Folate 10.5 NG/ML (8.6-58.9) Current Medications Medications (Trade) Dose Ordered Sig/Sam Route PRN Reason Start Time Stop Time Status Last Admin Dose Admin Acetaminophen (Tylenol) 650 mg Q4H PRN ORAL fever 07/12/17 00:46 08/10/17 00:45 Albuterol/ Ipratropium (Albuterol/ Ipratropium) 3 ml Q4H PRN HHN Shortness of Breath 07/12/17 01:00 07/17/17 00:59 Cefepime HCl 2 gm/ Dextrose 55 ml @ 110 mls/hr Q24H IVPB 07/12/17 16:00 07/19/17 15:59 07/14/17 15:48 Clotrimazole (Lotrimin) 1 applic EVERY 12 HOURS TOPIC 07/12/17 21:00 08/11/17 20:59 07/15/17 09:02 Heparin Sodium (Porcine) (Heparin 5000 units/ml) 5,000 units EVERY 12 HOURS SUBQ 07/12/17 09:00 08/10/17 20:59 07/15/17 09:01 Lorazepam (Ativan) 0.5 mg Q2H PRN ORAL For Anxiety 07/13/17 18:30 07/20/17 18:29 07/13/17 21:05 Morphine Sulfate (Morphine Sulfate) 4 mg Q4H PRN IVP Severe Pain (Pain Scale 7-10) 07/12/17 01:00 07/19/17 00:59 Ondansetron HCl (Zofran) 4 mg Q6H PRN IVP Nausea & Vomiting 07/12/17 00:49 08/10/17 00:48 Pantoprazole (Protonix) 40 mg DAILY IV 07/12/17 09:00 08/11/17 08:59 07/15/17 08:59 Polyethylene Glycol (Miralax) 17 gm DAILYPRN PRN ORAL Constipation 07/12/17 00:49 08/10/17 00:48 07/13/17 21:05 Sodium Chloride 1,000 ml @ 30 mls/hr Q24H IV 07/14/17 12:00 08/13/17 11:59 07/14/17 12:20 Vancomycin HCl (Vanco rx to dose) 1 ea DAILY PRN MISC . 07/14/17 08:45 08/13/17 08:44 Vancomycin HCl 500 mg/Dextrose 110 ml @ 110 mls/hr Q12HR@1000,2200 IVPB 07/14/17 22:00 07/19/17 21:59 07/14/17 21:41 Sima Pepe M.D. Jul 15, 2017 10:09
[2017-07-15] MEDS: Vancomycin 500mg/D5W 110ml IVPB SCH ×2 (10:28)
[2017-07-15 12:00] VITALS: BP 151/76
[2017-07-15] MEDS ORDERED: Albuterol/Ipratropium 3ml neb HHN PRN (13:00)
[2017-07-15] MEDS: Miralax 17gm pkt ORAL PRN (15:28)
[2017-07-15] MEDS: Cefepime HCl 2 GM in D5W 55 ML IVPB SCH (15:28)
[2017-07-15 16:00] VITALS: BP 157/80
--- NOTE | 2017-07-15 19:13 | Cardiology Progress Note ---
Assessment/Plan Problem List: (1) CHF (congestive heart failure) (2) CAD (coronary artery disease) (3) Respiratory failure with hypoxia (4) Dementia Status: stable, progressing Status Narrative Pt w/ pneumonia and diastolic HF. ECHO w/ normal LV systolic function and LVH during this admission. Mild troponin elevation - c/w demand ischemia. Assessment/Plan Continue iv antibiotics per ID. Diuretics prn . Followup am labs. Subjective ROS Limited/Unobtainable: Yes Subjective Cardiology for Dr. Martinez Pt alert/ confused. Objective Last 24 Hour Vital Signs Date Time Temp Pulse Resp B/P (MAP) Pulse Ox O2 Delivery O2 Flow Rate FiO2 07/15/17 16:00 82 07/15/17 16:00 97.6 84 17 157/80 100 Nasal Cannula 2.0 07/15/17 12:00 97.9 79 17 151/76 100 Nasal Cannula 2.0 07/15/17 12:00 78 07/15/17 08:00 77 07/15/17 08:00 97.9 71 18 156/73 99 Nasal Cannula 2.0 07/15/17 08:00 2.0 07/15/17 07:44 Nasal Cannula 2.0 28 07/15/17 07:44 76 20 Nasal Cannula 2.0 28 07/15/17 07:44 96 Nasal Cannula 2.0 28 07/15/17 05:16 74 24 100 Facial 2.0 30 07/15/17 04:00 79 07/15/17 04:00 97.8 71 18 146/73 100 Bi-pap 30 07/15/17 03:45 79 24 100 Facial 2.0 30 07/15/17 00:00 98.0 77 28 128/69 99 Bi-pap 30 07/15/17 00:00 30 07/15/17 00:00 79 07/14/17 23:53 85 19 98 Facial 2.0 30 07/14/17 20:52 88 19 98 Facial 2.0 30 07/14/17 20:00 30 07/14/17 20:00 78 07/14/17 20:00 97.9 77 27 135/81 99 Bi-pap 30 07/14/17 19:12 Bi-pap 30 07/14/17 19:11 98 Bi-pap 30 07/14/17 19:09 87 19 30 General Appearance: WD/WN, no apparent distress, alert EENT: PERRL/EOMI Neck: supple, no JVD Rhythm: NSR Cardiovascular: normal rate, regular rhythm, no gallop/murmur Respiratory/Chest: no accessory muscle use - R lower field rales/ rhonchi, other Abdomen: non tender, soft Extremities: no swelling Intake and Output 07/14/17 07/15/17 19:00 07:00 Intake Total 510.000 ml 410 ml Output Total 300 ml Balance 210.000 ml 410 ml IV Total 510.000 ml 410 ml Output Urine Total 300 ml # Voids 2 Laboratory Tests Test 07/15/17 06:30 White Blood Count 7.5 K/UL (4.8-10.8) Red Blood Count 3.62 M/UL (4.20-5.40) L Hemoglobin 11.0 G/DL (12.0-16.0) L Hematocrit 35.3 % (37.0-47.0) L Mean Corpuscular Volume 97 FL (80-99) Mean Corpuscular Hemoglobin 30.3 PG (27.0-31.0) Mean Corpuscular Hemoglobin Concent 31.1 G/DL (32.0-36.0) L Red Cell Distribution Width 14.7 % (11.6-14.8) Platelet Count 222 K/UL (150-450) Mean Platelet Volume 5.4 FL (6.5-10.1) L Neutrophils (%) (Auto) 30.7 % (45.0-75.0) L Lymphocytes (%) (Auto) 51.3 % (20.0-45.0) H Monocytes (%) (Auto) 15.0 % (1.0-10.0) H Eosinophils (%) (Auto) 1.3 % (0.0-3.0) Basophils (%) (Auto) 1.7 % (0.0-2.0) Differential Total Cells Counted 100 Neutrophils % (Manual) 31 % (45-75) L Lymphocytes % (Manual) 52 % (20-45) H Monocytes % (Manual) 16 % (1-10) H Eosinophils % (Manual) 1 % (0-3) Basophils % (Manual) 0 % (0-2) Band Neutrophils 0 % (0-8) Platelet Estimate Adequate Platelet Morphology Normal Hypochromasia 1+ Erythrocyte Sedimentation Rate 68 MM/HR (0-42) H Reticulocyte Count 0.9 % (0.0-2.0) Prothrombin Time 11.2 SEC (9.30-11.50) Prothromb Time International Ratio 1.1 (0.9-1.1) Activated Partial Thromboplast Time 42 SEC (23-33) H Sodium Level 141 MMOL/L (136-145) Potassium Level 3.7 MMOL/L (3.5-5.1) Chloride Level 98 MMOL/L (98-107) Carbon Dioxide Level 37 MMOL/L (21-32) H Anion Gap 6 mmol/L (5-15) Blood Urea Nitrogen 10 mg/dL (7-18) Creatinine 0.5 MG/DL (0.55-1.30) L Estimat Glomerular Filtration Rate mL/min (>60) Glucose Level 82 MG/DL (74-106) Calcium Level 8.5 MG/DL (8.5-10.1) Iron Level 76 ug/dL (50-175) Total Iron Binding Capacity 158 ug/dL (250-450) L Percent Iron Saturation 48 % (15-50) Unsaturated Iron Binding 82 ug/dL (112-346) L Total Bilirubin 0.8 MG/DL (0.2-1.0) Aspartate Amino Transf (AST/SGOT) 25 U/L (15-37) Alanine Aminotransferase (ALT/SGPT) 10 U/L (12-78) L Alkaline Phosphatase 61 U/L (46-116) Lactate Dehydrogenase 277 U/L (81-234) H Pro-B-Type Natriuretic Peptide 7146 pg/mL (0-125) H Total Protein 7.1 G/DL (6.4-8.2) Albumin 2.7 G/DL (3.4-5.0) L Globulin 4.4 g/dL Albumin/Globulin Ratio 0.6 (1.0-2.7) L Vitamin B12 Level 655 PG/ML (193-986) Folate 10.5 NG/ML (8.6-58.9) FLOR DEUTSCH Jul 15, 2017 19:13
[2017-07-15 20:00] VITALS: BP 154/75
[2017-07-15] MEDS: LORazepam 0.5mg tab ORAL PRN (20:26)
[2017-07-16] VITALS: BP 117/74
[2017-07-16] MEDS ORDERED: Vancomycin 750mg/D5W 275ml IVPB SCH ×2
[2017-07-16] MEDS: LORazepam 0.5mg tab ORAL PRN (01:57)
[2017-07-16 04:00] VITALS: BP 110/80
[2017-07-16 06:21] LABS: BASOPHILS % (AUTO) 2.2 % (0.0-2.0); HEMATOCRIT 38.9 % (37.0-47.0); HEMOGLOBIN 11.9 G/DL (12.0-16.0); LYMPHOCYTES % (AUTO) 46.8 % (20.0-45.0); MEAN CORPUSCULAR VOLUME 97 FL (80-99); MONOCYTES % (AUTO) 15.3 % (1.0-10.0); NEUTROPHILS % (AUTO) 34.7 % (45.0-75.0); PLATELET COUNT 198 K/UL (150-450); RED CELL DISTRIBUTION WIDTH 14.9 % (11.6-14.8)
[2017-07-16 06:42] LABS: ANION GAP 4 mmol/L (5-15); BLOOD UREA NITROGEN 8 mg/dL (7-18); CALCIUM 8.2 MG/DL (8.5-10.1); CARBON DIOXIDE 37 MMOL/L (21-32); CHLORIDE 99 MMOL/L (98-107); CREATININE 0.5 MG/DL (0.55-1.30); POTASSIUM 3.8 MMOL/L (3.5-5.1); SODIUM 139 MMOL/L (136-145)
[2017-07-16 08:00] VITALS: BP 100/60
[2017-07-16] MEDS: Pantoprazole Inj IV SCH (08:44)
[2017-07-16] MEDS: Heparin 5000 units/ml inj SUBQ SCH (08:45)
--- NOTE | 2017-07-16 09:33 | Diagnostic Imaging Report ---
APPROVED REPORT CPT Code: 14866 Present Symptoms Lower Extremity Pain: Bilateral Shortness of breath BILATERAL: Imaging reveals a patent deep venous system bilaterally. There is no evidence of thrombus within the femoral, popliteal or tibial segments. The greater saphenous veins are also within normal limits. Doppler indicates normal spontaneous flow within these segments.
--- NOTE | 2017-07-16 11:42 | Pulmonology Progress Note ---
Assessment/Plan Assessment/Plan ASSESSMENT Acute hypoxemic hypercapnic RF requiring BiPAP possible HCAP( RLL) CHF with diastolic dysfunction Acute toxic metabolic encephalopathy ( 2 to infectious prices and hypoxemia) Asthma CVA agitation moderate pulmonary HTN Breast CA severe protein calorie malnutrition dysphagia mid sacral un-stageable decub, POA L ischial tuberosity un-stageable decub, POA PLAN OF CARE off Bipap pulm toilet fup CXR + CHF empiric abx Influenza and bl cx negative, sputum cx if able ID follows ECHO with pEF 55-60% and RVSP of 50 c/w moderate pulmonary HTN Spot diuresis depending on Na and BP Cardio follows Anemia w/up noted, sufficient iron, borderline folate, add to existing regimen monitor HH ; transfuse prn DVT GI prophylaxis Venous Duplex BLE negative pain [id number] Bowel regimen psych follows psych med regimen optimized PT/OT/ST dietary recom implemented for nutritional support diet as per ST recom with strict aspiration precautions recommended VSS, can be done as outpt wound care as per wound nurse recom dc plan to SNF transfer to tele case discussed and evaluated by supervising physician Subjective Allergies: Coded Allergies: No Known Allergies (Unverified , 07/11/17) Subjective afebrile, mild leukocytosis resolved, weaned to O2 via NC Objective Last 24 Hour Vital Signs Date Time Temp Pulse Resp B/P (MAP) Pulse Ox O2 Delivery O2 Flow Rate FiO2 07/16/17 08:00 87 07/16/17 08:00 98.2 87 19 100/60 100 Nasal Cannula 2.0 07/16/17 07:15 Nasal Cannula 2.0 28 07/16/17 07:15 98 Nasal Cannula 2.0 28 07/16/17 07:15 80 20 Nasal Cannula 2.0 28 07/16/17 04:00 98.2 100 16 110/80 100 Nasal Cannula 2.0 07/16/17 04:00 77 07/16/17 00:00 99 07/16/17 00:00 98.2 99 19 117/74 100 Nasal Cannula 2.0 07/15/17 21:57 97.7 07/15/17 20:00 88 07/15/17 20:00 97.7 79 24 154/75 100 Nasal Cannula 2.0 07/15/17 19:44 81 20 Nasal Cannula 2.0 28 07/15/17 19:38 97 Nasal Cannula 2.0 28 07/15/17 19:38 Nasal Cannula 2.0 28 07/15/17 16:00 82 07/15/17 16:00 97.6 84 17 157/80 100 Nasal Cannula 2.0 07/15/17 12:00 97.9 79 17 151/76 100 Nasal Cannula 2.0 07/15/17 12:00 78 Intake and Output 07/15/17 07/16/17 19:00 07:00 Intake Total 415 ml 275.000 ml Output Total 1000 ml Balance -585 ml 275.000 ml Intake Oral 100 ml IV Total 315 ml 275.000 ml Output Urine Total 1000 ml # Voids 1 Objective General Appearance: no acute distress, cachetic, other - awake, alert, responsive HEENT: normocephalic, atraumatic, anicteric, mucous membranes moist, other - O2 via NC Cardiovascular: normal peripheral pulses, normal rate - SR on tele , regular rhythm Abdomen: normal bowel sounds, soft, non tender, non distended Extremities: no edema, pedal pulses normal Neurologic/Psychiatric: abnormal gait, alert, responsive Musculoskeletal: atrophy - BLE Laboratory Tests 07/15/17 21:48: Vancomycin Level Trough 10.7 07/16/17 05:45: White Blood Count 10.0, Red Blood Count 4.00L, Hemoglobin 11.9L, Hematocrit 38.9 , Mean Corpuscular Volume 97, Mean Corpuscular Hemoglobin 29.8, Mean Corpuscular Hemoglobin Concent 30.7L, Red Cell Distribution Width 14.9H, Platelet Count 198, Mean Platelet Volume 5.4L, Neutrophils (%) (Auto) 34.7L, Lymphocytes (%) (Auto) 46.8H, Monocytes (%) (Auto) 15.3H, Eosinophils (%) (Auto ) 1.0, Basophils (%) (Auto) 2.2H, Sodium Level 139, Potassium Level 3.8, Chloride Level 99, Carbon Dioxide Level 37H, Anion Gap 4L, Blood Urea Nitrogen 8 , Creatinine 0.5L, Estimat Glomerular Filtration Rate , Glucose Level 77, Calcium Level 8.2L Current Medications Medications (Trade) Dose Ordered Sig/Sam Route PRN Reason Start Time Stop Time Status Last Admin Dose Admin Acetaminophen (Tylenol) 650 mg Q4H PRN ORAL fever 07/12/17 00:46 08/10/17 00:45 Albuterol/ Ipratropium (Albuterol/ Ipratropium) 3 ml Q4H PRN HHN Shortness of Breath 07/15/17 13:00 07/20/17 12:59 Cefepime HCl 2 gm/ Dextrose 55 ml @ 110 mls/hr Q24H IVPB 07/12/17 16:00 07/19/17 15:59 07/15/17 15:28 Clotrimazole (Lotrimin) 1 applic EVERY 12 HOURS TOPIC 07/12/17 21:00 08/11/17 20:59 07/16/17 08:46 Heparin Sodium (Porcine) (Heparin 5000 units/ml) 5,000 units EVERY 12 HOURS SUBQ 07/12/17 09:00 08/10/17 20:59 07/16/17 08:45 Lorazepam (Ativan) 0.5 mg Q2H PRN ORAL For Anxiety 07/13/17 18:30 07/20/17 18:29 07/16/17 01:57 Morphine Sulfate (Morphine Sulfate) 4 mg Q4H PRN IVP Severe Pain (Pain Scale 7-10) 07/12/17 01:00 07/19/17 00:59 07/15/17 21:27 Ondansetron HCl (Zofran) 4 mg Q6H PRN IVP Nausea & Vomiting 07/12/17 00:49 08/10/17 00:48 Pantoprazole (Protonix) 40 mg DAILY IV 07/12/17 09:00 08/11/17 08:59 07/16/17 08:44 Polyethylene Glycol (Miralax) 17 gm DAILYPRN PRN ORAL Constipation 07/12/17 00:49 08/10/17 00:48 07/15/17 15:28 Vancomycin HCl (Vanco rx to dose) 1 ea DAILY PRN MISC . 07/14/17 08:45 08/13/17 08:44 Vancomycin HCl 750 mg/Dextrose 275 ml @ 183.708 mls/hr Q24H IVPB 07/16/17 00:00 07/21/17 00:00 07/16/17 00:21 Serena Orellana NP ([facility]) Jul 16, 2017 11:42
[2017-07-16 12:00] VITALS: BP 136/79
--- NOTE | 2017-07-16 14:45 | Cardiology Progress Note ---
Assessment/Plan Problem List: (1) CHF (congestive heart failure) (2) CAD (coronary artery disease) (3) Respiratory failure with hypoxia (4) Dementia (5) Pneumonia Status: stable, progressing Status Narrative Pt w/ pneumonia and diastolic HF. ECHO w/ normal LV systolic function and LVH during this admission. Mild troponin elevation - c/w demand ischemia. Assessment/Plan Continue iv antibiotics per ID. hold diuretics - does not appear volume overloaded. Troponins trending downward - no further w/u at this time, as ekgs w/o ischemic changes and pt without angina. Findings c/w demand ischemia. Subjective ROS Limited/Unobtainable: Yes Subjective Cardiology for Dr. Martinez Pt alert/ confused. No respiratory distress Objective Last 24 Hour Vital Signs Date Time Temp Pulse Resp B/P (MAP) Pulse Ox O2 Delivery O2 Flow Rate FiO2 07/16/17 12:00 79 07/16/17 12:00 98.2 76 22 136/79 100 Nasal Cannula 2.0 07/16/17 08:00 87 07/16/17 08:00 98.2 87 19 100/60 100 Nasal Cannula 2.0 07/16/17 07:15 Nasal Cannula 2.0 28 07/16/17 07:15 98 Nasal Cannula 2.0 28 07/16/17 07:15 80 20 Nasal Cannula 2.0 28 07/16/17 04:00 98.2 100 16 110/80 100 Nasal Cannula 2.0 07/16/17 04:00 77 07/16/17 00:00 99 07/16/17 00:00 98.2 99 19 117/74 100 Nasal Cannula 2.0 07/15/17 21:57 97.7 07/15/17 20:00 88 07/15/17 20:00 97.7 79 24 154/75 100 Nasal Cannula 2.0 07/15/17 19:44 81 20 Nasal Cannula 2.0 28 07/15/17 19:38 97 Nasal Cannula 2.0 28 07/15/17 19:38 Nasal Cannula 2.0 28 07/15/17 16:00 82 07/15/17 16:00 97.6 84 17 157/80 100 Nasal Cannula 2.0 General Appearance: WD/WN, no apparent distress, alert EENT: PERRL/EOMI Neck: supple, no JVD Rhythm: NSR Cardiovascular: normal rate, regular rhythm, no gallop/murmur Respiratory/Chest: no respiratory distress, other - R lower field rhonchi Abdomen: normal bowel sounds, non tender, soft Extremities: no swelling Intake and Output 07/15/17 07/16/17 19:00 07:00 Intake Total 415 ml 275.000 ml Output Total 1000 ml Balance -585 ml 275.000 ml Intake Oral 100 ml IV Total 315 ml 275.000 ml Output Urine Total 1000 ml # Voids 1 Laboratory Tests Test 07/15/17 21:48 07/16/17 05:45 Vancomycin Level Trough 10.7 ug/mL (5.0-12.0) White Blood Count 10.0 K/UL (4.8-10.8) Red Blood Count 4.00 M/UL (4.20-5.40) L Hemoglobin 11.9 G/DL (12.0-16.0) L Hematocrit 38.9 % (37.0-47.0) Mean Corpuscular Volume 97 FL (80-99) Mean Corpuscular Hemoglobin 29.8 PG (27.0-31.0) Mean Corpuscular Hemoglobin Concent 30.7 G/DL (32.0-36.0) L Red Cell Distribution Width 14.9 % (11.6-14.8) H Platelet Count 198 K/UL (150-450) Mean Platelet Volume 5.4 FL (6.5-10.1) L Neutrophils (%) (Auto) 34.7 % (45.0-75.0) L Lymphocytes (%) (Auto) 46.8 % (20.0-45.0) H Monocytes (%) (Auto) 15.3 % (1.0-10.0) H Eosinophils (%) (Auto) 1.0 % (0.0-3.0) Basophils (%) (Auto) 2.2 % (0.0-2.0) H Sodium Level 139 MMOL/L (136-145) Potassium Level 3.8 MMOL/L (3.5-5.1) Chloride Level 99 MMOL/L (98-107) Carbon Dioxide Level 37 MMOL/L (21-32) H Anion Gap 4 mmol/L (5-15) L Blood Urea Nitrogen 8 mg/dL (7-18) Creatinine 0.5 MG/DL (0.55-1.30) L Estimat Glomerular Filtration Rate mL/min (>60) Glucose Level 77 MG/DL (74-106) Calcium Level 8.2 MG/DL (8.5-10.1) FLOR FLROES Jul 16, 2017 14:45
[2017-07-16] MEDS: Cefepime HCl 2 GM in D5W 55 ML IVPB SCH (15:16)
[2017-07-16] MEDS: Miralax 17gm pkt ORAL PRN (15:16)
[2017-07-16 16:00] VITALS: BP 139/74
[2017-07-16] MEDS ORDERED: NS 275ml ONE (18:16)
[2017-07-17] MEDS ORDERED: Vancomycin 750mg/NS 250ml 250 ML IVPB SCH
--- NOTE | 2017-07-17 23:04 | General Progress Note ---
Assessment/Plan Status: stable, progressing Subjective Date patient seen: Jul 15, 2017 Neurologic/Psychiatric: Reports: anxiety, depressed, emotional problems Allergies: Coded Allergies: No Known Allergies (Unverified , 07/11/17) Objective Intake and Output 07/16/17 07/17/17 19:00 07:00 Intake Total 155 ml Balance 155 ml Intake Oral 100 ml IV Total 55 ml # Voids 3 Height (Feet): 5 Height (Inches): 3.00 Weight (Pounds): 95 General Appearance: no apparent distress, alert, confused Neurologic: alert, depressed affect Cassandra Ferris M.D. Jul 17, 2017 23:04
--- NOTE | 2017-07-17 23:05 | General Progress Note ---
Assessment/Plan Status: stable, progressing Subjective Date patient seen: Jul 16, 2017 Neurologic/Psychiatric: Reports: anxiety, depressed, emotional problems Allergies: Coded Allergies: No Known Allergies (Unverified , 07/11/17) Objective Intake and Output 07/16/17 07/17/17 19:00 07:00 Intake Total 155 ml Balance 155 ml Intake Oral 100 ml IV Total 55 ml # Voids 3 Height (Feet): 5 Height (Inches): 3.00 Weight (Pounds): 95 General Appearance: no apparent distress, alert, lethargic Neurologic: alert, disoriented, depressed affect Cassandra Ferris M.D. Jul 17, 2017 23:05
--- NOTE | 2017-07-18 22:15 | Discharge Summary 2 SIG ---
DATE OF ADMISSION: 07/11/2017 DATE OF DISCHARGE: 07/16/2017 REASON FOR ADMISSION: 81-year-old female, resident of the [facility] facility, with past medical history significant for breast CA, CVA, CHF, asthma, dementia, presented for evaluation. At baseline, the patient nonverbal, but alert. She presented with altered mental status. She was unresponsive. According to nursing staff that morning prior to presentation, the patient was hypoxic on room air. ABG revealed respiratory acidosis with pH7.29 and pCO2 -78. Laboratory workup revealed leukocytosis, anemia. Troponin negative. Pro BNP -4801. EKG revealed no acute ischemic changes. Chest x-ray revealed CHF/interstitial edema. The patient was started on empiric antibiotic,placed on BiPAP, and transferred to ICU for further management with admitting diagnoses of altered mental status, acute respiratory failure with hypoxia, dementia, history of cerebrovascular accident, pneumonia, and coronary artery disease. HOSPITAL COURSE: The patient was admitted to ICU. The patient was started on BiPAP, which was titrated as needed. Pulmonary toilet was provided with HHN and chest PT. The patient was started on empiric antibiotic. ID and cardiac consults were requested. The patient eventually was able to be weaned from BiPAP. Follow up chest x-ray revealed CHF. The patient was on empiric antibiotic. Leukocytosis resolved. Influenza screen and blood culture were negative. ID closely followed. Echocardiogram revealed preserved ejection fraction of 55 % to 60% and right ventricular systolic pressure of 50 consistent with moderate pulmonary hypertension. Gamemaster recommended only spot diuresis depending on sodium and blood pressure. No need for continuous diuresis since there was no evidence of volume overload. Troponin x2 were negative. EKG revealed no ischemic changes. The patient had no complaint of cardiac pain. Echocardiogram revealed preserved ejection fraction. The patient had element of diastolic dysfunction. Anemia workup revealed sufficient iron and borderline folate. Folate was added to existing regimen. Hemoglobin and hematocrit were closely monitored. No need for transfusion. Venous duplex of bilateral lower extremities was negative. DVT and GI prophylaxis provided. Pain management provided. Bowel regimen instituted. Psychiatrist closely followed. Psychiatric medication regimen was optimized. The The patient was working with Physical and Occupational Therapists. Dietary recommendation implemented regarding nutritional support. The patient eventually was transferred to [facility] and then to telemetry. The patient had a swallow evaluation, which revealed moderate oropharyngeal dysphagia. Diet was changed as per Speech Therapy recommendation. Wound care was provided as per wound nurse recommendations. The patient was stable for transfer to [facility] facility. FINAL DIAGNOSES: 1. Acute hypoxemic hypercapnic respiratory failure requiring BiPAP, resolved. 2. Possible healthcare-associated pneumonia (right lower lobe). 3. Congestive heart failure with diastolic dysfunction. 4. Acute toxic metabolic encephalopathy (secondary to infectious process and hypoxemia)-resolved 5. Asthma. 6. Cerebrovascular accident. 7. Moderate pulmonary hypertension. 8. Breast carcinoma. 9. Severe protein-calorie malnutrition. 10. Agitation. 11. Dysphagia. 12. Mid sacral un-stageable pressure ulcer, POA 13.Left ischial tuberosity un-stageable pressure ucler, PA DISCHARGE MEDICATIONS: See medication reconciliation list. DISCHARGE INSTRUCTIONS: The patient discharged to [facility] facility. FOLLOWUP: Follow up with medical doctor at the facility. Jean Rose M.D. [facility]: GLENN JOB#: [id number] CC: LAURIE
--- NOTE | 2017-07-26 17:57 | Cardiology Report ---
APPROVED REPORT EKG Measurement Heart [id number] Normal sinus rhythm Possible Left atrial enlargement Borderline ECG
== END 2017-07-16 18:17 | DRG 193 ==
LOC: EDBD 07:12 → EMR 08:01 → ICU 08:05 → EDBEDREQSVC 08:23 → EDBEDREQ 12:47 → 2W 22:54
PROC: 5A09357 Assistance with Respiratory Ventilation, Less than 24 Consecutive Hours, Continuous Positive Airway Pressure (ICD-10-PCS; principal; 2017-07-11)
DX: J18.9 Pneumonia, unspecified organism (principal); J96.01 Acute respiratory failure with hypoxia; E43 Unspecified severe protein-calorie malnutrition; G92 Toxic encephalopathy; R13.10 Dysphagia, unspecified; I50.32 Chronic diastolic (congestive) heart failure; Z68.1 Body mass index [BMI] 19.9 or less, adult; I27.20 Pulmonary hypertension, unspecified; Z85.3 Personal history of malignant neoplasm of breast; F03.90 Unspecified dementia, unspecified severity, without behavioral disturbance, psychotic disturbance, mood disturbance, and anxiety; Z86.73 Personal history of transient ischemic attack (TIA), and cerebral infarction without residual deficits; I25.10 Atherosclerotic heart disease of native coronary artery without angina pectoris; I35.1 Nonrheumatic aortic (valve) insufficiency
CPT/HCPCS: 36415; 36600; 71045; 80048; 80053; 80202; 81003; 82248; 82378; 82607; 82746; 82803; 83540; 83550; 83605; 83615; 83880; 84484; 85007; 85025; 85044; 85060; 85610; 85651; 85730; 86140; 86710; 87040; 87081; 93005; 93306; 93970; 94660; 94664; 94760